=== PATIENT | female | born 2005 | race Caucasian/White ===

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

== ENCOUNTER → 2025-07-09 | Outpatient (CLI) | payer OTHER, SELFPAY ==
[2025-07-09 18:34] LABS: AST(SGOT) 18 U/L (<=31); Alanine Aminotransfer ALT/SGPT 11 U/L (<=34); Albumin, Serum 4.4 g/dL (3.5-5.0); Alkaline Phosphatase 71 U/L (35-104); Anion Gap 10 (5-15); BUN 12 mg/dL (4-19); BUN/Creat Ratio 15.4 RATIO (10-20); Calcium,Total 9.5 mg/dL (7.6-11.0); Carbon Dioxide 26.6 mmol/L (21.0-32.0); Chloride 106 mmol/L (98-108); Globulin 2.5 g/dL (2.2-4.2); Glucose 70 mg/dL (70-99); Potassium 4.1 mmol/L (3.3-5.1)
--- OUTSIDE RECORDS SUMMARY | 2025-07-09 19:00 | XMS RPT_ITS | CCD ---
Author Organization [facility] Care Team Providers Care Fitter Machinist Name Role Phone Jim Nguyen MD Primary Care Provider ELIZABETH MISTRY Referring Unavailable ELIZABETH MISTRY Attending Unavailable JIM NGUYEN Primary Care Unavailab le Unavailable Primary Care Provider UnavailVLADISLAV Gloria Attending Unavailable Allergies Allergy Classification Reported Allergen(s) Allergy Type Date of Onset Reaction(s) Facility (8 sources) Seasonal allergy; Translations: [SEASONAL ALLERGIES] Allergy to substance 5 Cough, Itching [facility] (7 sources) Adhesive Tape; Translations: [ADHESIVE TAPE (ROSINS)] Allergy to substance 9 Hives, Other: See Comments [facility] (7 sources) Bacitracin; Translations: [BACITRACIN] Drug Allergy 9 Hives, Unknown [facility] (7 sources) Neomycin; Translations: [NEOMYCIN] Drug Allergy 9 Hives, Unknown [facility] (7 sources) Polymyxin B; Translations: [POLYMYXIN B] Drug Allergy 9 Hives, Unknown [facility] (2 sources) Bacitracin / Polymyxin B Drug Allergy 5 [facility] (2 sources) Cat Dander Propensity to adverse reactions 5 [facility] (2 sources) Wound Dressing Adhesive Propensity to adverse reactions [facility] Current Medications Medication Drug Class(es) Dates Sig (Normalized) Sig (Original) levonorgestrel 0.823143 mg/hr intrauterine system (5 sources) Progestin, Progestin-containi ng Intrauterine Device Start: 08-16-2022 End: 08-15-2027 levonorgestrel (KYLEENA) 17.5 mcg/24 hrs (5 yrs) 19.5 mg IUD 1 Each by INTRAUTERINE route as directed. 1 Each 08/16/2022 08/15/2027 Active Comment on above: 1 Each by INTRAUTERI NE route as directed. Completed/Discontinued Medications Medication Drug Class(es) Dates Sig (Normalized) Sig (Original) acetaminophen 500 mg oral tablet (2 sources) Start: 02-19-20 End: 02-19-20 1,000 mg, Oral, Once, On Mon02/18/25 at 0130, For 1 dose, Maximum dose of acetaminophen is 4000 mg from all sources in 24 hours. cephalexin 500 mg oral capsule (3 sources) Cephalosporin Antibacterial Start: 06-27-20 End: 08-09-20 take 1 capsule by mouth three times daily cephALEXin (KEFLEX) 500 mg capsule Indications: Ingrowing toenail with infection Take 1 capsule by mouth three times daily. 21 capsule 0 06/27/2022 08/09/2022 Discontinued Comment on above: Take 1 capsule by mo ut three times daily. loratadine 5 mg chewable tablet (3 sources) Start: 12-04-19 End: 08-09-20 take 1 tablet by mouth once daily loratadine 5 mg chewable tablet Take 5 mg by mouth once daily. 0 12/04/2014 08/09/2022 Discontinued Comment on above: Take 5 mg by mouth o nce daily. 1 ml medroxyPROGESTERone acetate 150 mg/ml injection (3 sources) Progestin Start: 05-16-20 End: 08-16-20 medroxyPROGESTERone (DEPO-PROVERA) 150 mg/mL injection Inject 1 mL intramuscularly every 12 weeks. 0 05/16/2022 08/16/2022 Discontinued Comment on above: Inject 1 mL intramus cularly every 12 weeks. miSOPROStol 0.2 mg oral tablet (2 sources) Prostaglandin E1 Analog Start: 08-09-20 End: 08-16-20 miSOPROStol (CYTOTEC) 200 mcg tablet Use 2 tablets vaginally as directed. The night before the procedure and the morning of the procedure. 4 tablet 0 08/09/2022 08/16/2022 Discontinued Comment on above: Use 2 tablets vagina lly as directed. The night before the procedure and the morning of the procedure. 2 ml ondansetron 2 mg/ml injection (2 sources) Serotonin-3 Receptor Antagonist Start: 02-19-20 End: 02-19-20 4 mg, IntraVENous, Once, On Mon02/18/25 at 0235, For 1 dose potassium chloride 20 meq powder for oral solution (2 sources) Start: 02-19-20 End: 02-19-20 take 1 [oz_av] by mouth once 40 mEq, Oral, Once, On Mon02/18/25 at 0230, For 1 dose, Dissolve each packet in 4 ounces of water = 5 mEq per 1 oz fluid., Indications: Hypokalemia 50 ml sodium chloride 9 mg/ml injection (2 sources) Start: 02-19-20 End: 02-19-20 1,000 mL, IntraVENous, at 1,000 mL/hr, Administer over 1 Hours, Once, On Mon02/18/25 at 0130, For 1 dose Problems Active Problems Problem Classification Problem Date Documented Date Episodic/Chronic Anxiety disorders (3 sources) Acute stress disorder; Translations: [Acute stress reaction] Onset: 09-13-2023 09-13-2023 Chronic Contraceptive and procreative management (7 sources) Patient encounter status; Translations: [Encounter for insertion of intrauterine contraceptive device] Onset: 09-26-2024 Episodic Headache; including migraine (2 sources) Acute headache; Translations: [Acute nonintractable headache, unspecified headache type] 02-18-2025 Episodic Headache; including migraine (2 sources) Headache; including migraine; Translations: [Headache, unspecified] Onset: 02-18-2025 Other skin disorders (1 source) Infection of toenail; Translations: [Ingrowing nail] Episodic Other skin disorders (1 source) Ingrowing toenail; Translations: [Ingrowing nail] Episodic Syncope (4 sources) Syncope; Translations: [Syncope and collapse] Onset: 02-18-2025 02-18-2025 Episodic Past or Other Problems Problem Classification Problem Date Documented Da te Episodic/Chronic Administrative/social admission (3 sources) Partner relationship problem; Translations: [Problems in relationship with spouse or partner] Onset: 09-13-2023 09-13-2023 Episodic Mood disorders (5 sources) Disturbance in mood; Translations: [Emotional lability] Onset: 09-13-2023 09-13-2023 Episodic Results Test Name Value Interpretation Reference Range Facility BASIC METABOLIC PANELon 05-0 Anion gap [Moles/Vol] 10 mmol/L Normal 3-13 [facility] Comment on above: Performed By: #### L [id number], LAB15, LAB20 #### Top Lifter: MICHELET SOLIS ([id number]) [facility] ([facility]) [address] [place] [address] Calcium [Mass/Vol] 9.0 mg/dL Normal 8.4-10.2 [facility] Comment on above: Performed By: #### L [id number], LAB15, LAB20 #### Top Lifter: MICHELET SOLIS ([id number]) [facility] ([facility]) [address] [place] [address] Chloride [Moles/Vol] 104 mmol/L Normal 98-107 [facility] Comment on above: Performed By: #### L [id number], LAB15, LAB20 #### Top Lifter: MICHELET SOLIS ([id number]) [facility] ([facility]) [address] [place] [address] CO2 [Moles/Vol] 26 mmol/L Normal 22-29 [facility] Comment on above: Performed By: #### L [id number], LAB15, LAB20 #### Top Lifter: MICHELET SOLIS ([id number]) [facility]) [address] [place] [address] Creatinine [Mass/Vol] 0.85 mg/dL Normal 0.57-1.11 [facility] Comment on above: Performed By: #### L [id number], LAB15, LAB20 #### Top Lifter: MICHELET SOLIS ([id number]) [facility]) [address] [place] [address] GLOMERULAR FILTRATION RATE ML/MIN/1.73 SQ M.PREDICTED >90.0 Normal >60.0 [facility] Comment on above: Result Comment: Calc ulation based on the Chronic Kidney Disease Epidemiology Collaboration (CKD-EPI) equation refit without adjustment for race Performed By: #### L [id number], LAB15, LAB20 #### Top Lifter: MICHELET SOLIS ([id number]) [facility] ([facility]) [address] [place] [address] Glucose [Mass/Vol] 104 mg/dL High 74-100 [facility] Comment on above: Performed By: #### L [id number], LAB15, LAB20 #### Top Lifter: MICHELET SOLIS ([id number]) [facility] ([facility]) [address] [place] [address] Potassium [Moles/Vol] 3.1 mmol/L Low 3.5-5.1 [facility] Comment on above: Result Comment: [facility] potassium values may be up to 0.5 mmol/L lower than serum values. Performed By: #### L [id number], LAB15, LAB20 #### Top Lifter: MICHELET SOLIS ([id number]) [facility] ([facility]) [address] [place] [address] Sodium [Moles/Vol] 140 mmol/L Normal 136-145 [facility] Comment on above: Performed By: #### Cheryl [id number], LAB15, LAB20 #### Top Lifter: MICHELET SOLIS ([id number]) [facility] ([facility]) [address] [place] [address] Urea nitrogen [Mass/Vol] 12 mg/dL Normal 8-21 [facility] Comment on above: Performed By: #### L [id number], LAB15, LAB20 #### Top Lifter: MICHELET SOLIS ([id number]) [facility] ([facility]) [address] [place] [address] Basic metabolic 1998 panelon 02-18-2025 Anion gap [Moles/Vol] 10 mmol/L 3 - 13 mmol/L [facility] Calcium [Mass/Vol] 9 mg/dL 8.4 - 10. 2 mg/dL [facility] Chloride [Moles/Vol] 104 mmol/L 98 - 10 7 mmol/L [facility] CO2 [Moles/Vol] 26 mmol/L 22 - 29 mmol/L [facility] Creatinine [Mass/Vol] 0.85 mg/dL 0.57 - 1.11 mg/dL [facility] GFR/1.73 sq M.predicted (S/P/Bld) [Vol rate/Area] - PINF [facility] Comment on above: Calculation based on the Chronic Kidney Disease Epidemiology Collaboration (CKD-EPI) equation refit without adjustment for race Glucose [Mass/Vol] 104 mg/dL High 74 - 100 mg/dL [facility] Interpretation and review of laboratory results Abnormal [facility] Potassium [Moles/Vol] 3.1 mmol/L Low 3.5 - 5.1 mmol/L [facility] Comment on above: Plasma potassium rosalee ues may be up to 0.5 mmol/L lower than serum values. Sodium [Moles/Vol] 140 mmol/L 136 - 145 mmol/L [facility] Urea nitrogen [Mass/Vol] 12 mg/dL 8 - 21 mg/dL [facility] CBC W Auto Differential pane l (Bld)on 02-18-2025 Basophils (Bld) [#/Vol] 0 10*3/uL 0.0 - 0.2 10*3/uL [facility] Basophils/100 WBC (Bld) 0.6 % 0.0 - 2.0 % [facility] Eosinophils (Bld) [#/Vol] 0.1 10*3/uL 0.0 - 0.5 10*3/uL [facility] Eosinophils/100 WBC (Bld) 1.6 % 0.0 - 6.0 % [facility] Erythrocyte distribution width (RBC) [Ratio] 11.9 % 11.5 - 15.0 % [facility] Hematocrit (Bld) [Volume fraction] 42.3 % 35.0 - 47.0 % [facility] Hemoglobin (Bld) [Mass/Vol] 13.8 g/dL 11.7 - 16.0 g/dL [facility] Immature granulocytes (Bld) [#/Vol] 0 10*3/uL NINF - 0.1 10*3/uL [facility] Immature granulocytes/100 WBC (Bld) 0.3 % 0.0 - 2.0 % [facility] Interpretation and review of laboratory results Normal [facility] Lymphocytes (Bld) [#/Vol] 1.8 10*3/uL 1.0 - 4.3 10*3/uL [facility] Lymphocytes/100 WBC (Bld) 26.4 % 15.0 - 45.0 % [facility] MCH (RBC) [Entitic mass] 30 pg 26.0 - 34.0 pg [facility] MCHC (RBC) [Mass/Vol] 32.6 % 30.5 - 36.0 % [facility] MCV (RBC) [Entitic vol] 92 fL 77.0 - 99.0 fL [facility] Monocytes (Bld) [#/Vol] 0.7 10*3/uL 0.0 - 0.9 10*3/uL [facility] Monocytes/100 WBC (Bld) 10.2 % 5.0 - 13.0 % [facility] Neutrophils (Bld) [#/Vol] 4.1 10*3/uL 1.8 - 7.5 10*3/uL [facility] Neutrophils/100 WBC (Bld) 60.9 % 38.0 - 82.0 % [facility] Nucleated RBC/100 WBC (Bld) [Ratio] 0 % [facility] Platelet mean volume (Bld) [Entitic vol] 9.5 fL 9.0 - 12.7 fL [facility] Platelets (Bld) [#/Vol] 228 10*3/uL 140 - 440 10*3/uL [facility] RBC (Bld) [#/Vol] 4.6 10*6/uL 3.80 - 5.2 0 10*6/uL [facility] WBC (Bld) [#/Vol] 6.8 10*3/uL 3.6 - 10.7 10*3/uL [facility] CBC WITH AUTO DIFFERENTIALon 02-18-2025 Basophils (Bld) [#/Vol] 0.0 10*3/uL Normal 0.0-0.2 [facility] Comment on above: Performed By: #### L [id number] #### Top Lifter: MICHELET SOLIS ([id number]) [facility] ([address] Basophils/100 WBC (Bld) 0.6 % Normal 0.0-2.0 [facility] Comment on above: Performed By: #### L [id number] #### Top Lifter: MICHELET SOLIS ([id number]) [facility]) [address] [place] [address] Eosinophils (Bld) [#/Vol] 0.1 10*3/uL Normal 0.0-0.5 [facility] Comment on above: Performed By: #### L [id number] #### Top Lifter: MICHELET SOLIS ([id number]) [facility]) [address] [place] [address] Eosinophils/100 WBC (Bld) 1.6 % Normal 0.0-6.0 [facility] Comment on above: Performed By: #### L [id number] #### Top Lifter: MICHELET SOLIS ([id number]) [facility]) [address] [place] [address] Erythrocyte distribution width (RBC) [Ratio] 11.9 % Normal 11.5-15.0 [facility] Comment on above: Performed By: #### L [id number] #### Top Lifter: MICHELET SOLIS ([id number]) [facility]) [address] [place] [address] Hematocrit (Bld) [Volume fraction] 42.3 % Normal 35.0-47.0 [facility] Comment on above: Performed By: #### L [id number] #### Top Lifter: MICHELET SOLIS ([id number]) [address] Hemoglobin (Bld) [Mass/Vol] 13.8 g/dL Normal 11.7-16.0 [facility] Comment on above: Performed By: #### L [id number] #### Top Lifter: MICHELET SOLIS ([id number]) [facility]) [address] [place] [address] IMMATURE GRANS % 0.3 % Normal 0.0-2.0 [facility] Comment on above: Performed By: #### L [id number] #### Top Lifter: MICHELET SOLIS ([id number]) [facility]) [address] [place] [address] IMMATURE GRANS ABSOLUTE 0.0 10*3/uL Normal <0.1 [facility] Comment on above: Performed By: #### L [id number] #### Top Lifter: MICHELET SOLIS ([id number]) [facility]) [address] [place] [address] Lymphocytes (Bld) [#/Vol] 1.8 10*3/uL Normal 1.0-4.3 [facility] Comment on above: Performed By: #### L [id number] #### Top Lifter: MICHELET SOLIS ([id number]) [facility]) [address] [place] [address] Lymphocytes/100 WBC (Bld) 26.4 % Normal 15.0-45.0 [facility] Comment on above: Performed By: #### L [id number] #### Top Lifter: MICHELET SOLIS ([id number]) [facility]) [address] [place] [address] MCH (RBC) [Entitic mass] 30.0 pg Normal 26.0-34.0 [facility] Comment on above: Performed By: #### L [id number] #### Top Lifter: MICHELET SOLIS ([id number]) [facility]) [address] [place] [address] MCHC 32.6 % Normal 30.5-36.0 [facility] Comment on above: Performed By: #### L [id number] #### Top Lifter: MICHELET SOLIS ([id number]) [facility]) [address] [place] [address] MCV (RBC) [Entitic vol] 92.0 fL Normal 77.0-99.0 [facility] Comment on above: Performed By: #### L [id number] #### Top Lifter: MICHELET SOLIS ([id number]) [facility]) [address] [place] [address] Monocytes (Bld) [#/Vol] 0.7 10*3/uL Normal 0.0-0.9 [facility] Comment on above: Performed By: #### L [id number] #### Top Lifter: MICHELET SOLIS ([id number]) [facility] ([facility]) [address] [place] [address] Monocytes/100 WBC (Bld) 10.2 % Normal 5.0-13.0 [facility] Comment on above: Performed By: #### L [id number] #### Top Lifter: MICHELET SOLIS ([id number]) [facility] ([facility]) [address] [place] [address] NEUTROPHILS ABSOLUTE 4.1 10*3/uL Normal 1.8-7.5 [facility] Comment on above: Performed By: #### L [id number] #### Top Lifter: MICHELET SOLIS ([id number]) [facility] ([facility]) [address] [place] [address] Neutrophils/100 WBC (Bld) 60.9 % Normal 38.0-82.0 [facility] Comment on above: Performed By: #### L [id number] #### Top Lifter: MICHELET SOLIS ([id number]) [facility] ([facility]) [address] [place] [address] NRBC 0.0 /100 WBCs Normal 0.0-2.0 [facility] Comment on above: Performed By: #### L [id number] #### Top Lifter: MICHELET SOLIS ([id number]) [facility] ([facility]) [address] [place] [address] Platelet mean volume (Bld) [Entitic vol] 9.5 fL Normal 9.0-12.7 [facility] Comment on above: Performed By: #### L [id number] #### Top Lifter: MICHELET SOLIS ([id number]) [facility] ([facility]) [address] [place] [address] [place] Platelets (Bld) [#/Vol] 228 10*3/uL Normal 140-440 [facility] Comment on above: Performed By: #### L [id number] #### Top Lifter: MICHELET SOLIS ([id number]) [facility] ([facility]) [address] [place] [address] RBC (Bld) [#/Vol] 4.60 10*6/uL Normal 3.80-5.20 [facility] Comment on above: Performed By: #### L [id number] #### Top Lifter: MICHELET SOLIS ([id number]) [facility] ([facility]) [address] [place] [address] WBC (Bld) [#/Vol] 6.8 10*3/uL Normal 3.6-10.7 [facility] Comment on above: Performed By: #### L [id number] #### Top Lifter: MICHELET SOLIS ([id number]) [facility] ([facility]) [address] [place] [address] ECG 12-LEADon 02-18-2025 ECG 12-LEAD IMPRESSION: Sinus arrhythmia Normal [place] No ST or T wave changes No previous available for comparison Electronically Signed On 02-18-2025 06:42:49 EDT by Fan Machado [facility] ED Nursing Noteon 02-18-2025 ED Nursing Note 100cc of vomit. Nausea and vomiting. This is also the first instance of diarrhea, liquid stool. Normal [facility] ED Provider Noteon ED Provider Note Emergency Department Encounter [facility] EMERGENCY DEPT Patient: Harper Epperson : 2005 Date of Evaluation: 02/18/2025 ED Supervising Physician: Vladislav Berger MD I personally evaluated Harper Epperson and made/approved the management plan and take responsibility for the patient management. This will serve as my Supervisory note and shared attestation. I did perform a substantive portion of the visit including all aspects of the Medical Decision Making. I wore appropriate PPE for the entirety of this encounter. In brief, Harper Epperson is a 19 y.o. that presents to the emergency department for evaluation after a syncopal episode. Patient states that she used a vape pen to smoke some marijuana. Approximately 30 minutes later she became lightheaded and briefly passed out. She fell and did hit her head on the floor. Friend is here with her and states that she did not fall hard nor hit her head very hard. Patient is complaining some pain on the right side of the forehead but denies any other complaints. Patient reports 1 previous syncopal episode approximately 1 year ago for which she did not go to the hospital. She states at that time it was a very hot day. She also reports smoking marijuana and then passed out later while making waffles. Denies any history of known heart disease. Unaware of any family history of any heart problems. Focused exam: Awake, alert, no apparent distress. Sitting comfortably in the bed. Normocephalic, atraumatic. Normal heart rate and heart sounds. Normal respiratory rate and effort. Normal lung sounds. Nontender to palpation along the chest wall, abdomen, pelvis. Upper and lower extremities unremarkable with normal range of motion at all joints and no tenderness to palpation. Brief ED course/MDM: Patient presents after syncopal episode described in HPI. EKG was obtained shortly after arrival per my interpretation shows sinus arrhythmia with no ST elevation, depression, ectopy, or abnormal intervals. No evidence of A-V dissociation, Brugada, QT prolongation, WPW, ARVD, obstructive cardiomyopathy, or RV strain. Workup in the ED with CBC, BMP, screen, and troponin with concern for possibility of electrolyte abnormality induced arrhythmia, anemia, or other possible etiology of her syncopal episode. Workup shows no significant derangements other than hypokalemia at 3.1. Patient was provided initial oral repletion here in the ED. Patient did have mild headache. She did hit her head when she fell. No focal or lateralizing deficits to indicate the need for CT scan. No evidence of injury on physical exam. She wasprovided Tylenol in the ED with improvement in headache. At this point I feel she is safer discharge with outpatient follow-up with her primary care. I recommend she call first thing in the morning to schedule appropriate follow-up. Return precautions were discussed and questions answered at the bedside prior to discharge. Family was concerned that she did appear jaundice recently. Does not appear jaundiced here today. We did add on a hepatic panel which does show a mild hyperbilirubinemia. Patient was instructed to also discuss this with her primary care for further evaluation. Diagnostics interpreted by me: EKG; see my interpretation elsewhere in the chart I personally discussed the patient's management with other clinicians: none All diagnostic, treatment, and disposition decisions were made by myself in conjunction with the Resident. I also supervised ventura portions of any procedures performed by the Resident. For all further details of the patient's emergency department visit, please see their documentation. (Comment: Please note this report has been produced using speech recognition software and may contain errors related to that system including errors in grammar, punctuation, and spelling, as well as words and phrases that may be inappropriate. If there are any questions or concerns please feel free to contact the dictating provider for clarification.) Vladislav Berger MD Acute Care [facility] Vladislav Berger MD 02/18/25 0255 [facility] ED Provider Note EMERGENCY DEPARTMENT ENCOUNTER Pt Name: Harper Epperson Birthdate 2005 Date of evaluation: 02/18/2025 ED Provider: Dmitriy Cao MD CHIEF COMPLAINT Chief Complaint Patient presents with Headache Headache since incident. Syncope Passed out tonight after feeling nausea and dizzy with only one instance of this before in the past. Currently nauseous and headache currently. When she passed out she hit her head without evidence of trauma and no complaints of tenderness. HISTORY OF PRESENT ILLNESS (Location/Symptom, Timing/Onset, Context/Setting, Quality, Duration, Modifying Factors, Severity) Note limiting factors. I wore appropriate PPE for the entirety of this encounter. HPI Harper Epperson is a 19 y.o. who presents to the emergency department with a chief complaint of syncope. Patient states that tonight she was smoking marijuana. Afterwards she was standing up when she felt lightheaded before she passed out. Her friend at bedside states she did strike her head on the wall when she fell. There was no tonic-clonic activity. The patient denies any preceding chest pain, palpitations, shortness of breath but is remember feeling lightheaded. Patient states this has happened 1 time before in the setting of marijuana use. Since falling patient is reporting a frontal headache. Nursing Notes were reviewed. Limitations to history: None Outside historians: None REVIEW OF SYSTEMS Review of Systems Pertinent positives and negatives as per HPI. PAST MEDICAL HISTORY No past medical history on file. SURGICAL HISTORY No past surgical history on file. CURRENT MEDICATIONS There are no discharge medications for this patient. ALLERGIES Cat dander, Neosporin [bacitracin-polymyx in b], and Wound dressing adhesive FAMILY HISTORY No family history on file. SOCIAL HISTORY Social History Socioeconomic History Marital status: Single SCREENINGS NIH Stroke Scale 1A. Level of Consciousness: Alert, Keenly Responsive 1B. Ask Month and Age: Both Questions Right 1C. Blink Eyes & Squeeze Hands: Performs Both Tasks 2. Best Gaze: Normal 3. Visual: No Visual Loss 4. Facial Palsy: Normal Symmetrical Movements 5A. Motor - Left Arm: No Drift 5B. Motor - Right Arm: No Drift 6A. Motor - Left Leg: No Drift 6B. Motor - Right Leg: No Drift 7. Limb Ataxia: Absent 8. Sensory Loss: Normal 9. Best Language: No Aphasia 10. Dysarthria: Normal 11. Extinction and Inattention: No Abnormality NIH Stroke Scale: 0 PHYSICAL EXAM ED Triage Vitals Temp Heart Rate Resp BP 02/18/25 0131 02/18/25 0124 02/18/25 0124 02/18/25 0124 36.3 ?C (97.4 ?F) 80 16 101/63 SpO2 Temp src Heart Rate Source Patient Position 02/18/25 0124 -- 02/18/25 0319 02/18/25 0124 99 % Monitor Sitting BP Location FiO2 (%) 02/18/25 0124 -- Left arm Physical Exam Vitals and nursing note reviewed. Constitutional: General: She is not in acute distress. Appearance: She is well-developed. HENT: Head: Normocephalic and atraumatic. Eyes: General: No visual field deficit. Extraocular Movements: Extraocular movements intact. Conjunctiva/sclera: Conjunctivae normal. Pupils: Pupils are equal, round, and reactive to light. Cardiovascular: Rate and Rhythm: Normal rate and regular rhythm. Heart sounds: No murmur heard. Pulmonary: Effort: Pulmonary effort is normal. No respiratory distress. Breath sounds: Normal breath sounds. Abdominal: Palpations: Abdomen is soft. Tenderness: There is no abdominal tenderness. Musculoskeletal: General: No swelling. Cervical back: Neck supple. No rigidity. Skin: General: Skin is warm and dry. Neurological: Mental Status: She is alert. GCS: GCS eye subscore is 4. GCS verbal subscore is 5. GCS motor subscore is 6. Cranial Nerves: No cranial nerve deficit, dysarthria or facial asymmetry. Sensory: No sensory deficit. Motor: No weakness. Coordination: Coordination normal. Gait: Gait normal. Psychiatric: Mood and Affect: Mood normal. DIAGNOSTIC RESULTS RADIOLOGY (Per Emergency Physician): Interpretation per the Radiologist below, if available at the time of this note: No orders to display LABS: Labs Reviewed BASIC METABOLIC PANEL - Abnormal Result Value SODIUM 140 POTASSIUM 3.1 (*) CHLORIDE 104 CARBON DIOXIDE 26 UREA NITROGEN 12 CREATININE 0.85 GLUCOSE 104 (*) CALCIUM 9.0 ANION GAP 10 eGFR >90.0 HEPATIC FUNCTION PANEL - Abnormal BILIRUBIN, TOTAL 1.6 (*) BILIRUBIN, DIRECT 0.5 (*) ALKALINE PHOSPHATASE 63 AST (SGOT) 43 (*) ALT 19 ALBUMIN 4.3 TOTAL PROTEIN 6.8 CBC WITH AUTO DIFFERENTIAL - Normal Auto WBC 6.8 RBC 4.60 Hemoglobin 13.8 Hematocrit 42.3 MCV 92.0 MCH 30.0 MCHC 32.6 RDW 11.9 Platelets 228 MPV 9.5 nRBC 0.0 Neutrophils Relative 60.9 Lymphocytes Relative 26.4 Monocytes Relative 10.2 Eosinophils Relative 1.6 Basophils Relative 0.6 Immature Grans % 0.3 Neutrophils A (more content not included)... Normal [facility] HEPATIC FUNCTION PANELon Albumin [Mass/Vol] 4.3 g/dL Normal 3.5-5.0 [facility] Comment on above: Performed By: #### Cheryl [id number], LAB15, LAB20 #### Top Lifter: MICHELET SOLIS ([id number]) [facility]) [address] [place] [address] ALP [Catalytic activity/Vol] 63 U/L Normal 40-150 [facility] Comment on above: Performed By: #### Cheryl [id number], LAB15, LAB20 #### Top Lifter: MICHELET SOLIS ([id number]) [facility]) [address] [place] [address] ALT [Catalytic activity/Vol] 19 U/L Normal <30 [facility] Comment on above: Performed By: #### Cheryl [id number], LAB15, LAB20 #### Top Lifter: MICHELET SOLIS ([id number]) [facility]) [address] [place] [address] AST [Catalytic activity/Vol] 43 U/L High <34 [facility] Comment on above: Performed By: #### L [id number], LAB15, LAB20 #### Top Lifter: MICHELET SOLIS ([id number]) [facility]) [address] [place] [address] Bilirubin [Mass/Vol] 1.6 mg/dL High <1.2 [facility] Comment on above: Performed By: #### L [id number], LAB15, LAB20 #### Top Lifter: MICHELET SOLIS ([id number]) [facility]) [address] [place] [address] Bilirubin.indirect [Mass/Vol] 0.5 mg/dL High <0.5 [facility] Comment on above: Performed By: #### L [id number], LAB15, LAB20 #### Top Lifter: MICHELET SOLIS ([id number]) [facility] ([facility]) [address] [place] [address] Protein [Mass/Vol] 6.8 g/dL Normal 6.4-8.3 [facility] Comment on above: Result Comment: Seru m protein values are higher than plasma values. Samples from recumbent persons are lower by up to 0.5 g/dL as compared to ambulatory persons. After 60 years values are lower by up to 0.2 g/dL. Performed By: #### L [id number], LAB15, LAB20 #### Top Lifter: MICHELET SOLIS ([id number]) [facility]) [address] [place] [address] HIGH SENSITIVITY TROPONIN, S ERIAL BASELINEon 02-18-2025 TROPONIN HS SERIAL BASELINE <3 Normal <=14 [facility] Comment on above: Result Comment: In i ndividuals presenting with symptoms > 2h, a baseline troponin <= 5 ng/L suggests acute cardiac injury is unlikely and further serial testing is generally not indicated. Performed By: #### L [id number], LAB15, LAB20 #### Top Lifter: MICHELET SOLIS ([id number]) [facility]) [address] [place] [address] Hepatic function 2000 panelo n 02-18-2025 Albumin [Mass/Vol] 4.3 g/dL 3.5 - 5.0 g/dL [facility] ALP [Catalytic activity/Vol] 63 U/L 40 - 150 U/L [facility] [employer] ALT [Catalytic activity/Vol] 19 U/L NINF - 30 U/L [facility] AST [Catalytic activity/Vol] 43 U/L High NINF - 34 U/L [facility] Bilirubin [Mass/Vol] 1.6 mg/dL High NINF - 1.2 mg/dL [facility] [facility] Bilirubin.conjugated [Mass/Vol] 0.5 mg/dL High NINF - 0.5 mg/dL [employer] [facility] [facility] Interpretation and review of laboratory results Abnormal [facility] Protein [Mass/Vol] 6.8 g/dL 6.4 - 8.3 g/dL [facility] Comment on above: Serum protein values are higher than plasma values. Samples from recumbent persons are lower by up to 0.5 g/dL as compared to ambulatory persons. After 60 years values are lower by up to 0.2 g/dL. [employer] No Panel InformationOrdered By: Fan Machado on 02-18-2025 P [place] 88 degrees [employer] Work Phone: MO Interval 150 ms [employer] Work Phone: QRS [place] 82 degrees [employer] Work Phone: QRSD Interval 80 ms [employer] Work Phone: QT Interval 398 ms [employer] Work Phone: QTC Interval 441 ms [employer] Work Phone: T Wave [place] 64 degrees [employer] Work Phone: [employer] Work Phone: No Panel Informationon 02-18 Sinus arrhythmia Normal [place] No ST or T wave changes No previous available for comparison Electronically Signed On 02-18-2025 06:42:49 EDT by Fan Machado CV aFn Khanna MD - 02/18/2025 IMPRESSION: Sinus arrhythmia Normal [place] No ST or T wave changes No previous available for comparison Electronically Signed On 02-18-2025 06:42:49 EDT by Fan Machado [facility] Interpretation and review of laboratory results Normal [facility] [employer] Troponin HS Serial Baseline ng/L NINF - 14 ng/L [facility] Comment on above: In individuals prese nting with symptoms > 2h, a baseline troponin <= 5 ng/L suggests acute cardiac injury is unlikely and further serial testing is generally not indicated. [employer] Vital signsOrdered By: Fan Machado on 02-18-2025 Heart rate 73 /min bpm [facility] [employer] Work Phone: CNOVon 09-26-2024 CN Office Visit (OBGYWM) ---- HARPER EPPERSON ([id number]) 5 F Date Time Provider Department 09/26/24 4:00 PM ELIZABETH MISTRY OBGYWM During your visit today, we recorded the following information about you: Blood pressure Weight 90/64 44.9 kg Elizabeth Mistry APRN.CN 09/26/2024 4:48 PM Signed Harper Epperson is a 19 year old female who presents for problem visit of continued mood changes. HPI: Seen in office last year for similar complaints and was contemplating removing IUD. She stated she has made several life changes such as going away to college and breaking up with previous boyfriend. She feels better but continues to have episodes of crying. Reports feeling extremely emotional whenever she is left alone. Just sits there and continuously cries for no reason. Unsure if fear or anxiety. Patient's mother again concerned over continued mood changes, crying spells and requests patient's hormones be tested. Patient is currently sexually active and voicing a need for control other than condoms. She is thinking about removing IUD to see if there is any effect on mood. She is torn over removal because she likes the IUD for contraception and no periods. OB History T0 L0 SAB0 IAB0 Ectopic0 Multiple0 Live Births0 [employer] History LMP: LMP Unknown, IUD Age at Menarche: 12 Age at First : Age at Menopause: [employer] History Comments: Sexual Activity: Yes; No partner data on record; male partner Contraception: No contraception data on record No past medical history on file. No past surgical history on file. No family history on file. Social History Tobacco Use Smoking status: Never Passive exposure: Never Smokeless tobacco: Never Vaping Use Vaping status: Never Used Substance Use Topics Alcohol use: No Drug use: No Current Outpatient Medications Medication Sig levonorgestrel (KYLEENA) 17.5 mcg/24 hrs (5 yrs) 19.5 mg IUD 1 Each by INTRAUTERINE route as directed. No current facility-administer ed medications for this visit. Allergies As of Date: 09/26/2024 Allergen Noted Reaction ADHESIVE TAPE (ROSINS) 10/14/2019 Hives and Other: See Comments BACITRACIN 10/14/2019 Hives and Unknown NEOMYCIN 10/14/2019 Hives and Unknown POLYMYXIN B 10/14/2019 Hives and Unknown SEASONAL ALLERGIES 12/04/2014 Cough and Itching Fully Assessed 09/13/2023 REVIEW OF SYSTEMS Abdomen: No bloating, early satiety, indigestion, or increased flatulence. No abdominal pain, nausea, vomiting, diarrhea, or constipation. Bladder: No dysuria, gross hematuria, urinary frequency, urinary urgency, or incontinence. Breast: No breast lumps, nipple d/c, overlying skin changes, redness or skin retraction. Expanded ROS: N/A Allergies and current medication updated:Yes SENSITIVE EXAM: Sensitive exam not performed. EXAM: BP 90/64 Wt 99 lb (44.9kg) GENERAL: emotional, female in mild distress HEENT: Normocephalic and atraumatic NECK: Supple and full range of motion DERMATOLOGY: Normal and without lesions BREAST: deferred CHEST: Normal inspiratory effort ABDOMEN: Deferred PELVIC: deferred BIMANUAL: deferred NEURO: alert and oriented x3,exam grossly non-focal EXTREMITIES: normal ASSESSMENT AND PLAN: Assessment AND Plan Mood changes General counseling and advice for contraceptive management Encounter for IUD removal Orders: REMOVE INTRAUTERINE DEVICE - Discussed hormonal and mood changes can occur with hormone based contraception - Establishing care with a counselor tomorrow - May remove IUD after consideration - Reviewed other options of contraception such as NuvaRing, Phexxi, Condoms - Order placed for IUD removal - Patient will call and schedule if desires - Support provided CASI Wets Courtney, APRN.CNM 09/26/2024 4:48 PM Written Referring Provider: ELIZABETH MISTRY [[id number]] Allergies As of Date: 09/26/2024 Noted Allergy Reaction ADHESIVE TAPE (ROSINS) 10/14/2019 4 - Hives 14 - Other: See Comments BACITRACIN 10/14/2019 4 - Hives 16 - Unknown NEOMYCIN 10/14/2019 4 - Hives 16 - Unknown POLYMYXIN B 10/14/2019 4 - Hives 16 - Unknown SEASONAL ALLERGIES 12/04/2014 3 - Cough 9 - Itching Date Reviewed: 09/26/2024 Reviewed by: Fox Keller MA - Fully Assessed Reason for Visit: Discussion [813] Primary Visit Diagnosis:Encounter for IUD removal [Z30.432] Other Visit Diagnoses:Mood changes [R45.86] General counseling and advice for contraceptive management [Z30.09] Order(s):REMOVE INTRAUTERINE DEVICE [[id number]] Order #: [id number] Prescriptions as of 09/26/2024 - levonorgestrel (KYLEENA) 17.5 mcg/24 hrs (5 yrs) 19.5 mg IUD 1 Each by INTRAUTERINE route as directed. Problem List As Of Date 09/26/2024 Noted Resolved Reaction, situational, acute, to stress [F43.0] 09/13/2023 Mood changes [R45.86] 09/13/2023 (more content not included)... Normal [facility] HCG QUAL UR B/Oon 08-16-2022 status Negative neg - pos [facility] Quality Check Yes [facility] COVID 19, LUCIAN WC(RT COLLECT )on 07-20-2021 SARS-CoV-2 (COVID-19) RNA LUCIAN+probe Ql (Unsp spec) Not detected Normal Not Detect [facility] Comment on above: Result Comment: Norm al Reference Range: Not Detected Method:(RT-PCR) real-time reverse transcriptase PCR [employer] Instrument *The Food and Drug Administration (FDA) has issued an Emergency Use Authorization (EAU) for the [employer] Integrity SARS-CoV-2 Assay for the rapid detection of the virus that causes COVID-19. This test has been validated, but the [facility] independent review of this validation is pending. *Negative results do not preclude infection and should not be used as the sole basis for treatment or patient management. Optimum specimen types and timing for peak viral levels during infections caused by SARS-CoV-2 have not been determined. Collection of multiple specimens from the same patient may be necessary to detect the virus. The possibility of a false negative result should be considered if the patient has clinical presentation or has had recent exposure. Performed By: #### L [id number] #### [facility] [address] [place], [place], [id number] Vital Signs Date Time Vital Sign Value Performing Clinician Juan Antonioi irasema 02-18-2025 03:19-0400 Diastolic blood pressure 64 mm[Hg] Vladislav Berger MD Work Phone: [facility] 02-18-2025 03:19-0400 Heart rate 79 /min Vladislav Berger MD Work Phone: [facility] 02-18-2025 03:19-0400 Respiratory rate 16 /min Vladislav Berger MD Work Phone: [facility] 02-18-2025 03:19-0400 SaO2% (BldA) [Mass fraction] 99 % Vladislav Berger MD Work Phone: [facility] 02-18-2025 03:19-0400 Systolic blood pressure 97 mm[Hg] Vladislav Berger MD Work Phone: [facility] 02-18-2025 01:31-0400 Body temperature 97.39 [degF] Vladislav Berger MD Work Phone: [facility] 02-18-2025 01:24-0400 Body height 160 cm Vladislav Berger MD Work Phone: [facility] 02-18-2025 01:24-0400 Body mass index (BMI) [Ratio] 17.54 kg/m2 Vladislav Berger MD Work Phone: [facility] 02-18-2025 01:24-0400 Body weight 44.91 kg Vladislav Berger MD Work Phone: [facility] 09-26-2024 16:15-0500 Body weight 44.91 kg Elizabeth Plotts GOLD MARKER.CNM Work Phone: [facility] 09-26-2024 16:15-0500 Diastolic blood pressure 64 mm[Hg] Elizabeth Plotts GOLD MARKER.CNM Work Phone: [facility] 09-26-2024 16:15-0500 Systolic blood pressure 90 mm[Hg] Elizabeth Plotts GOLD MARKER.CNM Work Phone: [facility] 09-13-2023 13:56-0500 Body weight 47.63 kg Elizabeth Plotts GOLD MARKER.CNM Work Phone: [facility] 09-13-2023 13:56-0500 Diastolic blood pressure 62 mm[Hg] Elizabeth Plotts GOLD MARKER.CNM Work Phone: [facility] 09-13-2023 13:56-0500 Systolic blood pressure 110 mm[Hg] Elizabeth Plotts GOLD MARKER.CNM Work Phone: [facility] 09-20-2022 15:45-0500 Body weight 49.71 kg Cahty Metamora GOLD MARKER.TECHNOLOGY EDUCATION INSTRUCTOR Work Phone: [facility] 09-20-2022 15:45-0500 Diastolic blood pressure 58 mm[Hg] Cathy Metamora GOLD MARKER.TECHNOLOGY EDUCATION INSTRUCTOR Work Phone: [facility] 09-20-2022 15:45-0500 Systolic blood pressure 90 mm[Hg] Cathy Metamora GOLD MARKER.TECHNOLOGY EDUCATION INSTRUCTOR Work Phone: [facility] 08-16-2022 11:57-0400 Diastolic blood pressure 60 mm[Hg] Cathy Metamora GOLD MARKER.TECHNOLOGY EDUCATION INSTRUCTOR Work Phone: [facility] 08-16-2022 11:57-0400 Heart rate 76 /min Cathy Metamora GOLD MARKER.TECHNOLOGY EDUCATION INSTRUCTOR Work Phone: [facility] 08-16-2022 11:57-0400 Respiratory rate 16 /min Cathy Metamora GOLD MARKER.TECHNOLOGY EDUCATION INSTRUCTOR Work Phone: [facility] 08-16-2022 11:57-0400 SaO2% (BldA) [Mass fraction] 99 % Cathy Metamora GOLD MARKER.TECHNOLOGY EDUCATION INSTRUCTOR Work Phone: [facility] 08-16-2022 11:57-0400 Systolic blood pressure 90 mm[Hg] Cathy Krishna GOLD MARKER.TECHNOLOGY EDUCATION INSTRUCTOR Work Phone: [facility] 08-16-2022 11:24-0400 Body mass index (BMI) [Percentile] Per age and sex 26.15 % Cathy Metamora GOLD MARKER.TECHNOLOGY EDUCATION INSTRUCTOR Work Phone: [facility] 08-16-2022 11:24-0400 Body weight 50.26 kg Cathy Metamora GOLD MARKER.TECHNOLOGY EDUCATION INSTRUCTOR Work Phone: [facility] 08-09-2022 11:40-0400 Body height 162 cm Cathy Metamora GOLD MARKER.TECHNOLOGY EDUCATION INSTRUCTOR Work Phone: [facility] 08-09-2022 11:40-0400 Body mass index (BMI) [Percentile] Per age and sex 19.8 % Cathy Metamora GOLD MARKER.TECHNOLOGY EDUCATION INSTRUCTOR Work Phone: [facility] 08-09-2022 11:40-0400 Body weight 48.99 kg Cathy Krishna GOLD MARKER.TECHNOLOGY EDUCATION INSTRUCTOR Work Phone: [facility] 08-09-2022 11:40-0400 Diastolic blood pressure 70 mm[Hg] Cathy Krishna GOLD MARKER.TECHNOLOGY EDUCATION INSTRUCTOR Work Phone: [facility] 08-09-2022 11:40-0400 Systolic blood pressure 110 mm[Hg] Cathy Metamora GOLD MARKER.TECHNOLOGY EDUCATION INSTRUCTOR Work Phone: [facility] Encounters Encounter Date Encounter Type Care Provider Facility Start: 02-18-2025 End: 02-18-2025 Emergency department patient visit Vladislav Berger MD Work Phone: [facility] Comment on above: Syncope, unspecified syncope type (Primary Dx); Acute nonintractable headache, unspecified headache type Start: 09-26-2024 End: 09-26-2024 Patient encounter procedure Elizabeth Mistry GOLD MARKER.CNM Work Phone: OB/Gynecology Comment on above: Encounter for IUD re moval (Primary Dx); Mood changes; General counseling and advice for contraceptive management Start: 09-26-2024 End: 09-26-2024 ambulatory ELIZABETH MISTRY Facility:[facility] Start: 09-13-2023 End: 09-13-2023 Patient encounter procedure Elizabeth Mistry GOLD MARKER.CNM Work Phone: OB/Gynecology Comment on above: Mood changes (Primar y Dx); Reaction, situational, acute, to stress; Partner relational problem Start: 09-20-2022 End: 09-20-2022 Patient encounter procedure Cathy Keller APRN.JAMIL Work Phone: OB/Gynecology Comment on above: IUD check up (Primar y Dx) Start: 08-16-2022 End: 08-16-2022 Patient encounter procedure Cathy Keller APRN.TECHNOLOGY EDUCATION INSTRUCTOR Work Phone: OB/Gynecology Comment on above: Encounter for IUD in sertion (Primary Dx) Start: 08-09-2022 End: 08-09-2022 Patient encounter procedure Cathy Keller APRN.TECHNOLOGY EDUCATION INSTRUCTOR Work Phone: OB/Gynecology Comment on above: Encounter for insert ion of intrauterine contraceptive device (IUD) (Primary Dx) Start: 07-18-2022 End: 07-18-2022 Patient encounter procedure Maxim Villarreal Work Phone: Podiatry Comment on above: Ingrowing toenail (P rimary Dx) Start: 06-27-2022 End: 06-27-2022 Patient encounter procedure Maxim Villarreal Work Phone: Podiatry Comment on above: Ingrowing toenail wi th infection (Primary Dx) Procedures Date Procedure Procedure Detail Performing Clinician Start: 02-18-2025 Comprehensive metabo lic panel Dmitriy Cao MD Work Phone: Start: 02-18-2025 Ecg routine ecg w/le ast 12 lds i&r only Dmitriy Cao MD Work Phone: Start: 08-16-2022 Urine test visual color cmprsn asif Keller GOLD MARKER.TECHNOLOGY EDUCATION INSTRUCTOR Work Phone: Plan of Treatment Date Care Activity Detail Author Start: 2080 RSV Immunization for Adults (1 - 1-dose 75+ series) RSV Immunization for Adults (1 - 1-dose 75+ series) [facility] Start: 2055 Zoster Vaccines (1 of 2) Zoste r Vaccines (1 of 2) [facility] Start: 05-04-2028 Urine microalbumin profile DTaP,Tdap,Td Vaccine (7 - Td or Tdap) [facility] Start: 06-16-2025 Influenza vaccination Influenz a Vaccine (Season Ended) [facility] Start: 2024 Hepatitis B Vaccines (1 of 3 - 19+ 3-dose series) Hepatitis B Vaccines (1 of 3 - 19+ 3-dose series) [facility] Start: 06-16-2024 COVID-19 Vaccine ( season) COVID-19 Vaccine ( season) [facility] Start: 06-16-2024 Covid-19 Vaccine ( season) Covid-19 Vaccine ( season) [facility] Start: 06-16-2024 Influenza vaccination Influenza Vacc ine (#1) [facility] Start: 09-15-2023 Meningococcal Conjug ate Vaccine (2 - 2-dose series) Meningococcal Conjugate Vaccine (2 - 2-dose series) [facility] Start: 2023 Chlamydia Screening (18-24) Chlamydia Screening (18-24) [facility] Start: 2023 Depression Screening Depression Scre ening [facility] Start: 2023 GC (Gonorrhea) Scree ying (18-24) GC (Gonorrhea) Screening (18-24) [facility] Start: 2023 Hepatitis C Screening Hepatitis C [facility] Start: 2023 Hepatitis C screening Hepatitis C Sc abbe [facility] Start: 2023 HIV Screening HIV Screening [facility] Start: 2023 HIV screening HIV Screening [facility] Start: 2023 Screening for Chlamy dean trachomatis Chlamydia Screening (18-24) [facility] Start: 06-16-2023 Covid-19 Vaccine ( season) Covid-19 Vaccine () [facility] Start: 06-16-2023 Influenza vaccination Influenza Vacc ine (#1) [facility] Start: 10-16-2022 Depression Assessment Depression Ass essment [facility] Start: 06-16-2022 Influenza vaccination INFLUENZA (#1) [facility] Start: 10-14-2021 COVID-19 VACCINE (3 - Booster for Pfizer series) COVID-19 VACCINE (3 - Booster for Pfizer series) [facility] Start: 2021 Meningococcal B Vacc ine: Consider Based On Risk (1 of 2 - Patient Seeks Protection) Meningococcal B Vaccine: Consider Based On Risk (1 of 2 - Patient Seeks Protection) [facility] Start: 2021 MENINGOCOCCAL CONJUG ATE (1 - 2-dose series) MENINGOCOCCAL CONJUGATE (1 - 2-dose series) [facility] Start: 07-09-2021 COVID-19 VACCINE (3 - Booster for Pfizer series) COVID-19 VACCINE (3 - Booster for Pfizer series) [facility] Start: 2020 CHLAMYDIA SCREENING (<18) CHLAMYDIA SCREENING (<18) [facility] Start: 2020 GC (GONORRHEA) SCREE YING (<18) GC (GONORRHEA) SCREENING (<18) [facility] Start: 2020 HPV Vaccines (1 - 3- dose series) HPV Vaccines (1 - 3-dose series) [facility] Start: 2019 PEDS TO ADULT TRANSI TION ANNUAL ASSESSMENT PEDS TO ADULT TRANSITION ANNUAL ASSESSMENT [facility] Start: 2017 Adult depression screening assessment DEPRESSION SCREENING [facility] Start: 2017 PEDS TO ADULT TRANSI TION INITIAL DISCUSSION PEDS TO ADULT TRANSITION INITIAL DISCUSSION [facility] Start: 2016 DTaP/Tdap/Td Vaccine s (6 - Tdap) DTaP/Tdap/Td Vaccines (6 - Tdap) [facility] Start: 2016 HPV VACCINE (1 - 2-d ose series) HPV VACCINE (1 - 2-dose series) [facility] [facility] Start: 2016 Urine microalbumin profile DTAP,TDAP,TD (6 - Tdap) [facility] Start: 2015 MENINGOCOCCAL B: Consider based on risk (1 of 2 - Risk Bexsero 2-dose series) MENINGOCOCCAL B: Consider based on risk (1 of 2 - Risk Bexsero 2-dose series) [facility] Start: 05-05-2006 Application of denta l fluoride varnish Fluoride Varnish [facility] Start: 2005 HEPATITIS B (1 of 3 - 3-dose series) HEPATITIS B (1 of 3 - 3-dose series) [facility] Start: 2005 HIV screening HIV Screening [facility] Insertion intrauteri ne device iud INSERT INTRAUTERINE DEVICE Procedures Routine Encounter for insertion of intrauterine contraceptive device (IUD) Ordered: 08/09/2022 [facility] Work Phone: Comment on above: Ordered: 08/09/2022 Insertion intrauteri ne device iud INSERT INTRAUTERINE DEVICE Procedures Routine Encounter for IUD insertion Ordered: 08/16/2022 [facility] Work Phone: Comment on above: Ordered: 08/16/2022 Removal intrauterine device iud REMOVE INTRAUTERINE DEVICE Procedures Routine Encounter for IUD removal Ordered: 09/26/2024 [facility] Work Phone: Comment on above: Ordered: 09/26/2024 [facility] Immunizations Immunization Date Immunization Notes Care Provider Troy hassan 08-14-2020 influenza virus vacc ine, unspecified formulation Elizabeth Mistry GOLD MARKER.CNM Work Phone: [facility] 07-27-2010 diphtheria, tetanus toxoids and acellular pertussis vaccine Maxim Villarreal Work Phone: [facility] 07-27-2010 measles, mumps and rubella virus vaccine Maxim Villarreal Work Phone: [facility] 07-27-2010 pneumococcal conjuga te vaccine, 13 valent Maxim Testrake Work Phone: [facility] 07-27-2010 poliovirus vaccine, inactivated Maxim Testrake Work Phone: [facility] 07-27-2010 varicella virus vaccine Delon hew Testrake Work Phone: [facility] 09-13-2007 diphtheria, tetanus toxoids and acellular pertussis vaccine Maxim Testrake Work Phone: [facility] 09-13-2007 haemophilus influenz ae type b vaccine, HbOC conjugate Maxim Testrake Work Phone: [facility] 09-13-2007 pneumococcal conjuga te vaccine, 13 valent Maxim Testrake Work Phone: [facility] 09-14-2006 measles, mumps and rubella virus vaccine Maxim Testrake Work Phone: [facility] 09-14-2006 pneumococcal conjuga te vaccine, 13 valent Maxim Testrake Work Phone: [facility] 09-14-2006 varicella virus vaccine Delon hew [employer] Work Phone: [facility] 04-13-2006 diphtheria, tetanus toxoids and acellular pertussis vaccine Maxim Testrake Work Phone: [facility] 04-13-2006 poliovirus vaccine, inactivated Maxim Testrake Work Phone: [facility] 04-10-2006 haemophilus influenz ae type b vaccine, HbOC conjugate Maxim Testrake Work Phone: [facility] 03-09-2006 diphtheria, tetanus toxoids and acellular pertussis vaccine Maxim Testrake Work Phone: [facility] 03-09-2006 haemophilus influenz ae type b vaccine, HbOC conjugate Maxim Testrake Work Phone: [facility] 03-09-2006 hepatitis B immune globulin Maxim Testrake Work Phone: [facility] 03-09-2006 poliovirus vaccine, inactivated Maxim Testrake Work Phone: [facility] 2005 diphtheria, tetanus toxoids and acellular pertussis vaccine Maxim Villarreal Work Phone: [facility] 2005 haemophilus influenz ae type b vaccine, HbOC conjugate Maxim Villarreal Work Phone: [facility] 2005 hepatitis B immune globulin Maxim Villarreal Work Phone: [facility] 2005 poliovirus vaccine, inactivated Maxim Villarreal Work Phone: [facility] 2005 hepatitis B immune globulin Maxim Villarreal Work Phone: [facility] Payers Date Payer Category Payer Commercial Managed C are - [employer] [id number] 2022 Unknown [employer] PPO [id number] 2022-Present [phone] [address] [place] [address] PPO [id number] 2022 Unknown [id number] Social History Date Type Detail Facility Start: 08-09-2022 Tobacco smoking status NHIS Never smoked tobacco [facility] Start: 06-27-2022 End: 09-26-2024 Alcohol intake Current non-drinker of alcohol (finding) [facility] Start: 2005 Sex Assigned At Not on file [facility] Start: 06-17-2022 End: 08-15-2022 Exposure to SARS-CoV-2 (event) Not sure [facility] Start: 08-09-2022 Tobacco use and exposure Smokeless tobacco non-user [facility] Start: 09-13-2023 End: 09-26-2024 History of Social function [facility] Start: 09-13-2023 End: 09-26-2024 Tobacco use panel [facility] National Score (1-100), lower number is lower risk 47 [facility] Tobacco smoking status NHIS Tobacco smoking consumption unknown [facility] Start: 02-18-2025 Sex Female (finding) [facility] NEGATED: Highlighted rowStart: NED History of tobacco use Passive smoker [facility] Clinical Notes 06-27-2022 to 02-18-2025 Discharge InstructionsAttachmentsMaroc Antonio Ventura RN - 02/18/2025 2:31 AM EDTMarco Antonio Ventura RN - 02/18/2025 2:31 AM EDTVladislav Berger MD - 02/18/2025 12:47 AM EDTPatient Instructions Note Date & Type Note Facility 02-18-2025 Hospital Discharg e instructions Dmitriy Cao MD - 02/18/2025 3:17 AM EDT Call your primary care doctor today to schedule follow-up appointment. Return to the emergency department for new or worsening symptoms. The following attachments cannot be sent through Care Everywhere.Syncope (Fainting) Discharge Instructions (Yakut)documented in this encounter [facility] 02-18-2025 Emergency department Note 100cc of vomit. Nausea and vomiting. This is also the first instance of diarrhea, liquid stool. [facility] 02-18-2025 Emergency department Note 100cc of vomit. Nausea and vomiting. This is also the first instance of diarrhea, liquid stool. Emergency Department Encounter [facility] Patient: Harper Epperson : 2005 Date of Evaluation: 02/18/2025 ED Supervising Physician: Vladislav Berger MD I personally evaluated Harper Epperson and made/approved the management plan and take responsibility for the patient management. This will serve as my Supervisory note and shared attestation. I did perform a substantive portion of the visit including all aspects of the Medical Decision Making. I wore appropriate PPE for the entirety of this encounter. In brief, Harper Epperson is a 19 y.o. that presents to the emergency department for evaluation after a syncopal episode. Patient states that she used a vape pen to smoke some marijuana. Approximately 30 minutes later she became lightheaded and briefly passed out. She fell and did hit her head on the floor. Friend is here with her and states that she did not fall hard nor hit her head very hard. Patient is complaining some pain on the right side of the forehead but denies any other complaints. Patient reports 1 previous syncopal episode approximately 1 year ago for which she did not go to the hospital. She states at that time it was a very hot day. She also reports smoking marijuana and then passed out later while making waffles. Denies any history of known heart disease. Unaware of any family history of any heart problems. Focused exam: Awake, alert, no apparent distress. Sitting comfortably in the bed. Normocephalic, atraumatic. Normal heart rate and heart sounds. Normal respiratory rate and effort. Normal lung sounds. Nontender to palpation along the chest wall, abdomen, pelvis. Upper and lower extremities unremarkable with normal range of motion at all joints and no tenderness to palpation. Brief ED course/MDM: Patient presents after syncopal episode described in HPI. EKG was obtained shortly after arrival per my interpretation shows sinus arrhythmia with no ST elevation, depression, ectopy, or abnormal intervals. No evidence of A-V dissociation, Brugada, QT prolongation, WPW, ARVD, obstructive cardiomyopathy, or RV strain. Workup in the ED with CBC, BMP, screen, and troponin with concern for possibility of electrolyte abnormality induced arrhythmia, anemia, or other possible etiology of her syncopal episode. Workup shows no significant derangements other than hypokalemia at 3.1. Patient was provided initial oral repletion here in the ED. Patient did have mild headache. She did hit her head when she fell. No focal or lateralizing deficits to indicate the need for CT scan. No evidence of injury on physical exam. She was provided Tylenol in the ED with improvement in headache. At this point I feel she is safer discharge with outpatient follow-up with her primary care. I recommend she call first thing in the morning to schedule appropriate follow-up. Return precautions were discussed and questions answered at the bedside prior to discharge. Family was concerned that she did appear jaundice recently. Does not appear jaundiced here today. We did add on a hepatic panel which does show a mild hyperbilirubinemia. Patient was instructed to also discuss this with her primary care for further evaluation. Diagnostics interpreted by me: EKG; see my interpretation elsewhere in the chart I personally discussed the patient's management with other clinicians: none All diagnostic, treatment, and disposition decisions were made by myself in conjunction with the Resident. I also supervised ventura portions of any procedures performed by the Resident. For all further details of the patient's emergency department visit, please see their documentation. (Comment: Please note this report has been produced using speech recognition software and may contain errors related to that system including errors in grammar, punctuation, and spelling, as well as words and phrases that may be inappropriate. If there are any questions or concerns please feel free to contact the dictating provider for clarification.) Vladislav Berger MD Acute Care [facility] Vladislav Berger MD 02/18/25 0255 documented in this encounter [facility] 02-18-2025 Physician Emergency department Note Emergency Department Encounter [facility] Patient: Harper Epperson : 2005 Date of Evaluation: 02/18/2025 ED Supervising Physician: Vladislav Berger MD I personally evaluated Harper Epperson and made/approved the management plan and take responsibility for the patient management. This will serve as my Supervisory note and shared attestation. I did perform a substantive portion of the visit including all aspects of the Medical Decision Making. I wore appropriate PPE for the entirety of this encounter. In brief, Harper Epperson is a 19 y.o. that presents to the emergency department for evaluation after a syncopal episode. Patient states that she used a vape pen to smoke some marijuana. Approximately 30 minutes later she became lightheaded and briefly passed out. She fell and did hit her head on the floor. Friend is here with her and states that she did not fall hard nor hit her head very hard. Patient is complaining some pain on the right side of the forehead but denies any other complaints. Patient reports 1 previous syncopal episode approximately 1 year ago for which she did not go to the hospital. She states at that time it was a very hot day. She also reports smoking marijuana and then passed out later while making waffles. Denies any history of known heart disease. Unaware of any family history of any heart problems. Focused exam: Awake, alert, no apparent distress. Sitting comfortably in the bed. Normocephalic, atraumatic. Normal heart rate and heart sounds. Normal respiratory rate and effort. Normal lung sounds. Nontender to palpation along the chest wall, abdomen, pelvis. Upper and lower extremities unremarkable with normal range of motion at all joints and no tenderness to palpation. Brief ED course/MDM: Patient presents after syncopal episode described in HPI. EKG was obtained shortly after arrival per my interpretation shows sinus arrhythmia with no ST elevation, depression, ectopy, or abnormal intervals. No evidence of A-V dissociation, Brugada, QT prolongation, WPW, ARVD, obstructive cardiomyopathy, or RV strain. Workup in the ED with CBC, BMP, screen, and troponin with concern for possibility of electrolyte abnormality induced arrhythmia, anemia, or other possible etiology of her syncopal episode. Workup shows no significant derangements other than hypokalemia at 3.1. Patient was provided initial oral repletion here in the ED. Patient did have mild headache. She did hit her head when she fell. No focal or lateralizing deficits to indicate the need for CT scan. No evidence of injury on physical exam. She was provided Tylenol in the ED with improvement in headache. At this point I feel she is safer discharge with outpatient follow-up with her primary care. I recommend she call first thing in the morning to schedule appropriate follow-up. Return precautions were discussed and questions answered at the bedside prior to discharge. Family was concerned that she did appear jaundice recently. Does not appear jaundiced here today. We did add on a hepatic panel which does show a mild hyperbilirubinemia. Patient was instructed to also discuss this with her primary care for further evaluation. Diagnostics interpreted by me: EKG; see my interpretation elsewhere in the chart I personally discussed the patient's management with other clinicians: none All diagnostic, treatment, and disposition decisions were made by myself in conjunction with the Resident. I also supervised ventura portions of any procedures performed by the Resident. For all further details of the patient's emergency department visit, please see their documentation. (Comment: Please note this report has been produced using speech recognition software and may contain errors related to that system including errors in grammar, punctuation, and spelling, as well as words and phrases that may be inappropriate. If there are any questions or concerns please feel free to contact the dictating provider for clarification.) Vladislav Berger MD [facility] Vladislav Berger MD 02/18/25254 [employer] Phone: 09-26-2024 History of Presen t illness Narrative Harper Epperson is a 19 year old female who presents for problem visit of continued mood changes. HPI: Seen in office last year for similar complaints and was contemplating removing IUD. She stated she has made several life changes such as going away to college and breaking up with previous boyfriend. She feels better but continues to have episodes of crying. Reports feeling extremely emotional whenever she is left alone. Just sits there and continuously cries for no reason. Unsure if fear or anxiety. Patient's mother again concerned over continued mood changes, crying spells and requests patient's hormones be tested. Patient is currently sexually active and voicing a need for control other than condoms. She is thinking about removing IUD to see if there is any effect on mood. She is torn over removal because she likes the IUD for contraception and no periods. OB History T0 L0 SAB0 IAB0 Ectopic0 Multiple0 Live Births0 [employer] History LMP: LMP Unknown, IUD Age at Menarche: 12 Age at First : Age at Menopause: [employer] History Comments: Sexual Activity: Yes; No partner data on record; male partner Contraception: No contraception data on record No past medical history on file. No past surgical history on file. No family history on file. Social History Tobacco Use Smoking status: Never Passive exposure: Never Smokeless tobacco: Never Vaping Use Vaping status: Never Used Substance Use Topics Alcohol use: No Drug use: No Current Outpatient Medications Medication Sig levonorgestrel (KYLEENA) 17.5 mcg/24 hrs (5 yrs) 19.5 mg IUD 1 Each by INTRAUTERINE route as directed. No current facility-administered medications for this visit. Allergies As of Date: 09/26/2024 Allergen Noted Reaction ADHESIVE TAPE (ROSINS) 10/14/2019 Hives and Other: See Comments BACITRACIN 10/14/2019 Hives and Unknown NEOMYCIN 10/14/2019 Hives and Unknown POLYMYXIN B 10/14/2019 Hives and Unknown SEASONAL ALLERGIES 12/04/2014 Cough and Itching Fully Assessed 09/13/2023 REVIEW OF SYSTEMS Abdomen: No bloating, early satiety, indigestion, or increased flatulence. No abdominal pain, nausea, vomiting, diarrhea, or constipation. Bladder: No dysuria, gross hematuria, urinary frequency, urinary urgency, or incontinence. Breast: No breast lumps, nipple d/c, overlying skin changes, redness or skin retraction. Expanded ROS: N/A Allergies and current medication updated:Yes SENSITIVE EXAM: Sensitive exam not performed. EXAM: BP 90/64 Wt 99 lb (44.9kg) GENERAL: emotional, female in mild distress HEENT: Normocephalic and atraumatic NECK: Supple and full range of motion DERMATOLOGY: Normal and without lesions BREAST: deferred CHEST: Normal inspiratory effort ABDOMEN: Deferred PELVIC: deferred BIMANUAL: deferred NEURO: alert and oriented x3,exam grossly non-focal EXTREMITIES: normal ASSESSMENT AND PLAN: Assessment & Plan Mood changes General counseling and advice for contraceptive management Encounter for IUD removal Orders: REMOVE INTRAUTERINE DEVICE - Discussed hormonal and mood changes can occur with hormone based contraception - Establishing care with a counselor tomorrow - May remove IUD after consideration - Reviewed other options of contraception such as NuvaRing, Phexxi, Condoms - Order placed for IUD removal - Patient will call and schedule if desires - Support provided Elizabeth Mistry APRN.CNM documented in this encounter [facility] 09-26-2024 Note HNO ID: [id number] Author: ELIZABETH MISTRY APRN.CNM Service: ? Author Type: Passenger Train Braker Type: Progress Notes Filed: 09/26/2024 16:48 Note Text: Harper Epperson is a 19 year old female who presents for problem visit of continued mood changes. HPI: Seen in office last year for similar complaints and was contemplating removing IUD. She stated she has made several life changes such as going away to college and breaking up with previous boyfriend. She feels better but continues to have episodes of crying. Reports feeling extremely emotional whenever she is left alone. Just sits there and continuously cries for no reason. Unsure if fear or anxiety. Patient's mother again concerned over continued mood changes, crying spells and requests patient's hormones be tested. Patient is currently sexually active and voicing a need for control other than condoms. She is thinking about removing IUD to see if there is any effect on mood. She is torn over removal because she likes the IUD for contraception and no periods. OB History T0 L0 SAB0 IAB0 Ectopic0 Multiple0 Live Births0 [employer] History LMP: LMP Unknown, IUD Age at Menarche: 12 Age at First : Age at Menopause: [employer] History Comments: Sexual Activity: Yes; No partner data on record; male partner Contraception: No contraception data on record No past medical history on file. No past surgical history on file. No family history on file. Social History Tobacco Use Smoking status: Never Passive exposure: Never Smokeless tobacco: Never Vaping Use Vaping status: Never Used Substance Use Topics Alcohol use: No Drug use: No Current Outpatient Medications Medication Sig levonorgestrel (KYLEENA) 17.5 mcg/24 hrs (5 yrs) 19.5 mg IUD 1 Each by INTRAUTERINE route as directed. No current facility-administered medications for this visit. Allergies As of Date: 09/26/2024 Allergen Noted Reaction ADHESIVE TAPE (ROSINS) 10/14/2019 Hives and Other: See Comments BACITRACIN 10/14/2019 Hives and Unknown NEOMYCIN 10/14/2019 Hives and Unknown POLYMYXIN B 10/14/2019 Hives and Unknown SEASONAL ALLERGIES 12/04/2014 Cough and Itching Fully Assessed 09/13/2023 REVIEW OF SYSTEMS Abdomen: No bloating, early satiety, indigestion, or increased flatulence. No abdominal pain, nausea, vomiting, diarrhea, or constipation. Bladder: No dysuria, gross hematuria, urinary frequency, urinary urgency, or incontinence. Breast: No breast lumps, nipple d/c, overlying skin changes, redness or skin retraction. Expanded ROS: N/A Allergies and current medication updated:Yes SENSITIVE EXAM: Sensitive exam not performed. EXAM: BP 90/64 Wt 99 lb (44.9kg) GENERAL: emotional, female in mild distress HEENT: Normocephalic and atraumatic NECK: Supple and full range of motion DERMATOLOGY: Normal and without lesions BREAST: deferred CHEST: Normal inspiratory effort ABDOMEN: Deferred PELVIC: deferred BIMANUAL: deferred NEURO: alert and oriented x3,exam grossly non-focal EXTREMITIES: normal ASSESSMENT AND PLAN: Assessment AND Plan Mood changes General counseling and advice for contraceptive management Encounter for IUD removal Orders: REMOVE INTRAUTERINE DEVICE - Discussed hormonal and mood changes can occur with hormone based contraception - Establishing care with a counselor tomorrow - May remove IUD after consideration - Reviewed other options of contraception such as NuvaRing, Phexxi, Condoms - Order placed for IUD removal - Patient will call and schedule if desires - Support provided Elizabeth Mistry APRN.CNM [facility] 09-13-2023 Instructions Elizabeth Mistry APRN.CNM - 09/13/2023 2:22 PM EST Here are some links for wonderful Providers here in the community and surrounding areas. Do not hesitate to contact their offices, many are offering virtual visits during this time. If you are in suicidal crisis, please call or text [phone]-TALK ( ) or visit the National Suicide Prevention Lifeline website. [facility] Psychology, Psychiatry, Counseling Connect with therapist/ can do virtual visits [phone] Referral to the [facility] To schedule an appointment, please call the Center for [facility] Appointment Line: [phone] option 1 [facility] - [place], [place] [address] [place] [address] [facility] [address] [place] [address] [facility] [address] [place] [address] [facility] [address] [place], [place] [id number] Psychotherapy resources outside of [facility] are listed below [facility] Web: https://www.Dwllr / Support International Online Provider Directory https://Hammer & Chisel/ [facility] https://RelinkLabs / [facility] Web: https://O3b Networks/ [employer] [facility] [employer] [facility] Web: https://letsmote.com.effectiveForbes Travel Guideliving.OrbFlex / [employer] Web: https://Gamervision/location /[facility]/[place]/ [facility] Web: https://www.[facility]. org/ [facility] Web: https://[facility].org/ Recovery Resources Mental health and substance abuse help Web: https://www.Vidable CRISIS: CRISIS HOTLINE 058.185.9505315.998.4606, 911 or go to the nearest . [facility] [phone] / [facility] [phone] https://www.[facility].org Crisis text line text the word HOME to [phone] [facility] [address] [place] [address] [facility] [address] www.bridgerClerky Aleisha [facility] [address] [email or web address] [phone] Holding space psychotherapy Aida Salgado BICYCLE ASSEMBLER CANNING MACHINE OPERATOR-S [address] [facility] www.FTL SOLAR [phone]/ Brett [phone] They all offer virtual. All work with trauma Support groups Online support meetings PSI https://www..net/get- help/jil-uhtbjq-zbvrzew-meeting s/ Here are the support groups they offer: Support of parents of 1 to 4 years old children POEM ( Outreach and Encouragement for Moms) offers free support for mothers experiencing depression, anxiety, and other mood and anxiety disorders. Masks are recommended but not required. No pre-registration required. Babies in arms welcome. meetings now take place on the and Monday of each month Location: [facility] [address] [place] [address] Room 122 (library room) 7-8:00 p.m. When you enter the [facility] parking lot off of [address] the entrance door closest to our meeting room is on the front of the building toward the right. For those who are more comfortable with a virtual platform, POEM offers online support group options several days of the week. To register for an online group or to find out more about POEM, website at: https://[place].org/get-help/[facility] surgeryrapvav-narxcm-ujyjoa/sylvain-servi michelle/ offer a confidential helpline: private Facebook group is called [facility] - [place] Clem[place] Here are the groups they offer: Traumatic childbirth resources: Http://pattch.org/ https://www.[facility]heide.[employer]/ documented in this encounter [facility] 09-13-2023 History of Presen t illness Narrative Harper Epperson is a 18 year old female who presents for problem visit of mood changes. Had Kyleena placed last year. Pleased with IUD in general due to no periods but has noticed increasing changes in mood for the past 2 months. Stated has been crying a lot for no reason and also gets mad at everything. Patient's mother suggested she be seen to discuss removal of IUD. OB History T0 L0 SAB0 IAB0 Ectopic0 Multiple0 Live Births0 REVIEW OF SYSTEMS Abdomen: No bloating, early satiety, indigestion, or increased flatulence. No abdominal pain, nausea, vomiting, diarrhea, or constipation. Bladder: No dysuria, gross hematuria, urinary frequency, urinary urgency, or incontinence. Breast: No breast lumps, nipple d/c, overlying skin changes, redness or skin retraction. Expanded ROS: N/A Allergies and current medication updated:Yes EXAM: BP 110/62 Wt 105 lb (47.6kg) GENERAL: upset and emotional, female in mild distress HEENT: Normocephalic and atraumatic NECK: Supple and full range of motion DERMATOLOGY: Normal and without lesions BREAST: deferred CHEST: Normal inspiratory effort ABDOMEN: Deferred PELVIC: deferred BIMANUAL: deferred NEURO: alert and oriented x3,exam grossly non-focal EXTREMITIES: normal ASSESSMENT/PLAN: 1. Mood changes - ICD9: 296.90, ICD10: R45.86 (primary diagnosis) 2. Reaction, situational, acute, to stress - ICD9: 308.9, ICD10: F43.0 3. Partner relational problem - ICD9: V61.10, ICD10: Z63.0 - After long discussion with patient it was determined stress and mood changes could be due to current relationship. Boyfriend is living with her and family due to divorce. Partner struggling with mental health/ depression. Taking medications but not consistently. - Patient getting ready to graduate high school and voiced concern over plans after graduation. - Patient denies SI/HI - Recommended counseling services - Discussed that mood changes can occur with forms of progesterone and option to remove IUD is available. Patient declines removal at this time. RTO- As needed or if desires removal of IUD CASI West APRN.CNM documented in this encounter [facility] 09-20-2022 History of Presen t illness Narrative Harper Epperson presents today for IUD check. She had a Kyleena placed on 08/16/22. She has had some cramping since placement. REVIEW OF SYSTEMS: PAIN ASSESSMENT: Negative for pain, history of chronic pain, or current treatment for a chronic pain condition. PHYSICAL EXAMINATION: Wt 109 lb 9.6 oz (49.7kg) EXTERNAL GENITALIA: Normal genitalia and Bartholins, Urethra, Sken'e normal CERVIX: smooth, no lesions. IUD strings visible. UTERUS: normal size ADNEXA: negative for tenderness or masses IMPRESSION/PLAN: IUD correctly positioned. Follow up for annual exam or sooner if needed. Cathy Keller APRN.CNP Medical Decision Making: Problems: Low: Acute, uncomplicated illness or injury Risk: Low: Low risk from testing/treatment Medical Decision Making Level: 3 - Low documented in this encounter [facility] 08-16-2022 Instructions Mariam Brock LPN - 08/16/2022 11:25 AM EDT POST IUD INSTRUCTIONS You may have irregular bleeding during the first 3 months of use. You may have mild-severe cramping for the next 48 hours. You may use over the counter medication (Motrin, Tylenol) as needed. Your IUD must be removed or replaced based on the following table: IUD Type Removed or replaced within: Geeta 3 years Kyleena 5 years Mirena 8 years Paragard 10 years Call my office for signs/symptoms of infection such as severe cramping, fever, or unusual bleeding. Check for string placement as instructed by your doctor. If you have any additional questions, please contact the office. documented in this encounter [facility] 08-16-2022 History of Presen t illness Narrative Harper presents today for IUD insertion for contraception. No LMP recorded (lmp unknown). (Menstrual status: Drug Induced Amenorrhea). GC/chlamydia: Not done: no risk factors and/or patient declines screening test: negative Side effects including irregular bleeding were discussed with the patient. The patient understands that it should be removed in 5 years or sooner if the patient desires a . IUD source: office provided IUD lot #: [id number] Exp date: 06/15/24 UNIVERSAL PROTOCOL / SAFETY CHECKLIST Procedure to be Performed: Kyleena insertion Sign In: A Moment of CARE was completed. Personnel directly involved with the procedure wore the appropriate PPE (Personal Protective Equipment). Patient/Surrogate Stated/Verified: PATIENT VERIFIED(optional for EMERGENT procedures): Patient name, Date of , Relevant allergies, and The intended procedure Time Out Communication: Intended patient and procedure match the source documents. Consent documented and matches the intended procedure. Sign Out: SIGN OUT (optional for EMERGENT procedures): No specimen collected. All instruments, equipment, possible retained foreign bodies accounted for. Post-procedure follow-up management communicated and Plan of Care Visit completed when applicable. The cervix was prepped with betadine. The uterus sounded to 7.5 cm and the uterus is Retroverted.. Using sterile technique, the Kyleena IUD was inserted without difficulty and the string was cut to 2cm from the external os of the cervix. Patient tolerated procedure well. PLAN: Patient was advised to observe for signs and symptoms of infection including but not limited to fever, malodorous vaginal discharge and/or pain. The patient was told to check the string monthly for accurate placement. Bleeding expectations were reviewed. Follow up in one month. Cathy Keller APRN.CNP documented in this encounter [facility] 08-09-2022 History of Presen t illness Narrative CONTRACEPTION Harper Epperson is a 16 year old No obstetric history on file. who presents today for contraception. She is interested in an IUD. She has been doing Depo for just over 1 yr, she is not having any periods. No LMP recorded. Patient is premenarcheal.. HPI: Dysmenorrhea No Heavy menses No Irregular menses No SUBJECTIVE Sexually active: Yes Smoking No Last PAP Method of control: Depo Provera satisfactory Relevant Past Medical History: No relevant past medical history OB History No obstetric history on file.No past medical history on file.No past surgical history on file.No family history on file.SOCIAL HISTORY Social History Tobacco Use Smoking status: Never Smokeless tobacco: Never Vaping Use Vaping Use: Never used Substance Use Topics Alcohol use: No Drug use: No No past surgical history on file. Current Outpatient Medications Medication Sig medroxyPROGESTERone (DEPO-PROVERA) 150 mg/mL injection Inject 1 mL intramuscularly every 12 weeks. cephALEXin (KEFLEX) 500 mg capsule Take 1 capsule by mouth three times daily. (Patient not taking: Reported on 07/18/2022) loratadine 5 mg chewable tablet Take 5 mg by mouth once daily. (Patient not taking: No sig reported) No current facility-administered medications for this visit. Allergies As of Date: 08/09/2022 Allergen Noted Reaction ADHESIVE TAPE (ROSINS) 10/14/2019 Hives and Other: See Comments BACITRACIN 10/14/2019 Hives and Unknown NEOMYCIN 10/14/2019 Hives and Unknown POLYMYXIN B 10/14/2019 Hives and Unknown SEASONAL ALLERGIES 12/04/2014 Cough and Itching Fully Assessed 07/18/2022 OBJECTIVE: General Appearance: Well appearing, alert, in no acute distress, well-hydrated, well nourished. Skin: Color normal Lungs: normal inspiratory effort ASSESSMENT/PLAN: 1. Encounter for insertion of intrauterine contraceptive device (IUD) - ICD9: V25.11, ICD10: Z30.430 - INSERT INTRAUTERINE DEVICE- Kyleena - Cytotec sent in Cathy Keller APRN.CNP I spent a total of 25 minutes on the date of the service which included preparing to see the patient, [id number] patient care, completing clinical documentation, obtaining and/or reviewing separately obtained history, counseling and educating the patient/family/caregiver, and ordering medications, tests, or procedures. documented in this encounter [facility] 07-18-2022 History of Presen t illness Narrative UNIVERSAL PROTOCOL / SAFETY CHECKLIST Procedure to be Performed: partial nail matrixectomy, b/l hallux medial nail border Sign In: A Moment of CARE was completed. Personnel directly involved with the procedure wore the appropriate PPE (Personal Protective Equipment). No special equipment needed. Patient/Surrogate Stated/Verified: PATIENT VERIFIED(optional for EMERGENT procedures): Patient name, Date of , Relevant allergies, and The intended procedure Time Out Communication: Intended patient and procedure match the source documents. Consent documented and matches the intended procedure. No relevant labs, photos, and/or imaging studies were applicable for review. Correct side/site marked and visible. Medications required for procedure verified. No fire risk assessment and interventions applicable. No implant(s) inserted. Sign Out: SIGN OUT (optional for EMERGENT procedures): No specimen collected. All instruments, equipment, possible retained foreign bodies accounted for. Post-procedure follow-up management communicated and Plan of Care Visit completed when applicable. Marleny Perez LPN FOLLOW UP PODIATRIC OFFICE VISIT Chief Complaint: This 16 year old who presents for follow up:ingrowing toenail of b/l hallux Patient presents to clinic for follow-up ingrowing toenail of b/l hallux She complains of pain to medial border of b/l hallux Patient denies any drainage or redness currently Does report the right one is more painful than the left PAIN EVALUATION 07/18/2022 1417 Pain Level: 4 Pain Location: Toe Description: Sharp Duration Amount of Time: 2 Duration Units: Days Frequency: Intermittent Intervention/Comfort measure: Reposition;Relaxation;Distracti ons No results found for: HBA1C PCP: Jim Nguyen MD No past medical history on file. Current Outpatient Medications Medication Sig medroxyPROGESTERone (DEPO-PROVERA) 150 mg/mL injection Inject 1 mL intramuscularly every 12 weeks. cephALEXin (KEFLEX) 500 mg capsule Take 1 capsule by mouth three times daily. (Patient not taking: Reported on 07/18/2022) loratadine 5 mg chewable tablet Take 5 mg by mouth once daily. (Patient not taking: No sig reported) No current facility-administered medications for this visit. ALLERGIES Allergen Reactions Adhesive Tape (Elissa* Hives, Other: See Comments Bacitracin Hives, Unknown Neomycin Hives, Unknown Polymyxin B Hives, Unknown Seasonal Allergies Cough, Itching No past surgical history on file. Physical Exam: OBJECTIVE: Constitutional: Pt is a well developed 16 year old female who is alert, oriented, cooperative and in no apparent distress. Eyes: Following during examination. No redness or drainage. Respiratory: RR normal and nonlabored. Even breathing. No evidence of distress. Psychology: Patient is engaged during conversation. Normal affect and mood. Does not appear depressed or anxious. NVSI unchanged from previous visit. Dermatological: Medial border of b/l hallux is ingrowing with pain. No signs of infection. ASSESSMENT: (L60.0) Ingrowing toenail (primary encounter diagnosis) PLAN: Discussed ingrowing toenail of b/l hallux No signs of infection Discussed options not limited to periodic slant back vs partial nail matrixectomy of medial border or both borders. Patient and mother agree to medial border matrixectomy of b/l hallux. She does likely have component of raynauds but her pulses are palpable, hair growth is present, she had procedure in past and healed and cft is brisk. Offered pvr prior to procedure. She declined further vascular testing Discussed risks of toenail procedure not limited to infection, pain, swelling, bleeding, painful scarring, recurrence, need for revised procedure. Patient consented to proceed. Patient was properly identified by name and procedure. The right hallux was then injected with 3 cc of 1% lidocaine plain. The toe was then prepped and draped in the usual aseptic technique. A digital tournicot was applied to the toe. The medial border was then freed and removed. Careful inspection was performed to assure no remaining spicule present. 3 applications of phenol were then administered x 30 seconds each followed by alcohol rinse. Sterile dressing was then applied consisting of amerigel, guaze, joshua and coban. Tournicot was removed and hyperemic response was noted. Patient tolerated well. Patient will f/u in 2 weeks. Discussed risks of toenail procedure not limited to infection, pain, swelling, bleeding, painful scarring, recurrence, need for revised procedure. Patient consented to proceed. Patient was properly identified by name and procedure. The left hallux was then injected with 3 cc of 1% lidocaine plain. The toe was then prepped and draped in the usual aseptic technique. A digital tournicot was applied to the toe. The medial border was then freed and removed. Careful inspection was performed to assure no remaining spicule present. 3 applications of phenol were then administered x 30 seconds each followed by alcohol rinse. Sterile dressing was then applied consisting of amerigel, guaze, joshua and coban. Tournicot was removed and hyperemic response was noted. Patient tolerated well. Patient will f/u in 2 weeks. Maxim Villarreal DPM AMB ROOMING INTAKE FLOWSHEET DATA Risk Screening Do you have concerns about personal safety or safety in the home?: No Pain Pain Level: 4 Pain Location: Toe Description: Sharp Duration Amount of Time: 2 Duration Units: Days Frequency: Intermittent Intervention/Comfort measure: Reposition, Relaxation, Distractions Patient presents with: Left Great Toe - Established Patient, Ingrown Toenail Right Great Toe - Established Patient, Ingrown Toenail Patient presents for bilateral great toenail removal. States that Right great toe began hurting over the weekend. Danay Coello RN documented in this encounter [facility] 07-18-2022 Instructions Maxim Villarreal - 07/18/2022 2:31 PM EDT Post-Op Nail Instructions Minimize activity until the anesthesia wears off (about 2-8 hours). Increase activity to tolerance Remove bandage tomorrow Soak affected toe/foot in epsom salts for 15-20 minutes twice daily After soaking, apply antibiotic ointment (OTC Neosporin) to affected toe and re bandage OTC Ibuprofen if having pain, provided you have no allergies or intolerance to NSAIDS Mild drainage, redness, and blood is expected, but if you expeirence severe pain, increase in drainage, swelling, or red streaking please contact our office immediately Feel free to contact office as well if you have any questions/concerns [phone], ask for Podiatry Nurse documented in this encounter [facility] 06-27-2022 Instructions Maxim Villarreal - 06/27/2022 3:20 PM EDT Soak your toe in soap and water daily until healed Take antibiotic as prescribed Apply topical antibiotic for the next few days. Make plans for permanent procedure. documented in this encounter [facility] 06-27-2022 History of Presen t illness Narrative Images from the original note were not included. Initial Podiatric Office Visit: Chief Complaint: This 16 year old female who presents with chief complaint:ingrowing toenail of b/l hallux HPI Patient presents to clinic for evaluation of b/l hallux Patient complains of ingrowing toenail to left hallux medial and lateral nail border and ingrowing toenail to right hallux medial nail border Patient states the painful ingrown has been present for the past 2-3 weeks She does report some drainage to the left great toe Patient is not currently on any antibiotic Patient states that she had a permanent matrixectomy of medial border of b/l hallux last year by [facility]. PAIN EVALUATION 06/27/2022 1504 Pain Level: 7 Baseline 04/24, 06/25 with pressure Pain Location: Toe Description: Throbbing;Sharp Duration Amount of Time: 3 Duration Units: Weeks Frequency: Continuous Intervention/Comfort measure: Reposition;Relaxation;Distracti ons Comments: Soaking in epsom salt No results found for: HBA1C PCP: Jim Nguyen MD History reviewed. No pertinent past medical history. Current Outpatient Medications Medication Sig loratadine 5 mg chewable tablet Take 5 mg by mouth once daily. (Patient not taking: Reported on 06/27/2022) No current facility-administered medications for this visit. ALLERGIES Allergen Reactions Seasonal Allergies Cough, Itching No past surgical history on file. No family history on file. Social History Tobacco Use Smoking status: Never Smokeless tobacco: Never Substance Use Topics Alcohol use: No Drug use: No REVIEW OF SYSTEMS GENERAL: Negative for Malaise, significant weight loss, fever RESPIRATORY: Negative for cough, wheezing and shortness of breath CARDIOVASCULAR: Negative for chest pain, leg swelling and palpitations GI: Negative for abdominal discomfort, blood in stools or black stools and change in bowel habits : Negative for dysuria, frequency and incontinence MUSCULOSKELETAL: Negative for joint pain or swelling, back pain, and muscle pain. SKIN: Negative for lesions, rash, and itching. HEMATOLOGY/LYMPHOLOGY Negative for prolonged bleeding, bruising easily, and swollen nodes. ENDOCRINE: Negative for cold or heat intolerance, polyuria, polydipsia and goiter. NEURO: negative Physical Exam: Constitutional: Pt is a well developed 16 year old female who is alert, oriented and cooperative Eyes: Following during examination. No redness or drainage. Respiratory: RR normal and nonlabored. Even breathing. No evidence of distress or shortness of breath. Psychology: Patient is engaged during conversation. Normal affect and mood. Does not appear depressed or anxious during encounter. Vascular: Dorsalis pedis and posterior tibial pulses palpable as b/l Capillary Fill time < 5 seconds to digits 1-5 b/l Skin temperature warm to warm proximal to distal b/l Hair growth present to digits Neurological: intact light touch/epicritic sensation b/l intact protective sensation no significant neurological deficits Dermatological: Left hallux medial and lateral nail border is ingrowing with redness and swelling. Right hallux medial nail border is ingrowing with redness and swelling. Webspaces clean and dry 1-4 b/l. Skin appears well hydrated and supple. good color, texture, turgor. No open lesions present. No callosities present. Musculoskeletal/Orthopaedic: Patient has pain to palpation of b/l hallux medial border and left hallux lateral nail border Radiographs: n/a ASSESSMENT: (L60.0) Ingrowing toenail with infection (primary encounter diagnosis) Pain in toe PLAN: 1. History and physical examination performed. 2. Discussed ingrowing toenail of b/l hallux. There is redness and swelling present. We discussed treatment options for this patient. Since there is infection, I would hold on any permanent matirxectomy. If she desires permanent procedure, I would place her on antbiotic, get the infection under control and do the procedure once infection is gone. She agrees to proceed with this plan. 3. Today, antibiotic was prescribed 4. Slant back debridement was performed of left hallux medial and lateral nail border 5. Will plan for procedure once infection subsides. Maxim Villarreal DPM Podiatry [address] [facility] [address] Dept: [phone] Dept AMB ROOMING INTAKE FLOWSHEET DATA Risk Screening Do you have concerns about personal safety or safety in the home?: No Pain Pain Level: 7 (Baseline 7/10, 9/10 with pressure) Pain Location: Toe Description: Throbbing, Sharp Duration Amount of Time: 3 Duration Units: Weeks Frequency: Continuous Intervention/Comfort measure: Reposition, Relaxation, Distractions Comments: Soaking in epsom salt Patient presents with: Left Great Toe - New, Pain, Ingrown Toenail Right Great Toe - New, Pain, Ingrown Toenail Patient presents for ingrown greater toe bilaterally. States soaking with epsom salt helps. Also states that last year she had a procedure done with another electric razor mechanic to fix her ingrown toenails. Danay Coello RN documented in this encounter [facility] Evaluation note Diagnosis Ingrowing toenail with infection- Primary Ingrowing nail [facility] Diagnosis Ingrowing toenail- Primary Ingrowing nail [facility] Diagnosis Encounter for insertion of intrauterine contraceptive device (IUD)- Primary [facility] Encounter for IUD insertion- Primary Encounter for insertion of intrauterine contraceptive device [facility] Diagnosis IUD check up- Primary Surveillance of previously prescribed intrauterine contraceptive device [facility] Diagnosis Mood changes- Primary Unspecified episodic mood disorder Reaction, situational, acute, to stress Unspecified acute reaction to stress Partner relational problem Counseling for marital and partner problems, unspecified [facility] Diagnosis Encounter for IUD removal- Primary Encounter for removal of intrauterine contraceptive device Mood changes Unspecified episodic mood disorder General counseling and advice for contraceptive management Other general counseling and advice for contraceptive management * Assessment & Plan Note - Elizabeth Mistry APRN.CNM - 09/26/2024 4:48 PM EST Associated Problem(s): Mood changes [facility] Diagnosis Syncope, unspecified syncope type- Primary Acute nonintractable headache, unspecified headache type [facility] Outpatient Procedure (Routine) - Open Specialty Diagnoses / Procedures Referred By Bhavana jaeger Referred To Contact [facility] Diagnoses Encounter for insertion of intrauterine contraceptive device (IUD) Encounter for removal of intrauterine contraceptive device Procedures INSERT INTRAUTERINE DEVICE LEVONORGESTREL-RELEASING INTR CONTRACEPTIVE (KYLEENA), 19.5 MG INSERT INTRAUTERINE DEVICE REMOVE INTRAUTERINE DEVICE Cathy Keller APRN.CNP [address] [place] [address] [place] [id number] Referral ID Status Reason Start Date Expiration Date V isits Requested Visits Authorized [id number] Open Auto-Generate d Referral 08/09/2022 08/09/2023 1 1 [facility] for referral (narrative)* Outpatient Procedure (Routine) - Pending Review Specialty Diagnoses / Procedures Referred By Bhavana jaeger Referred To Contact [facility] Diagnoses Encounter for IUD insertion Procedures INSERT INTRAUTERINE DEVICE LEVONORGESTREL-RELEASING INTR CONTRACEPTIVE (KYLEENA), 19.5 MG INSERT INTRAUTERINE DEVICE Cathy Keller APRN.CNP [address] [place] [address] [address] Referral ID Status Reason Start Date Expiration Date Visits Requested Visits Authorized [id number] Pending Review Auto-Generat ed Referral 08/16/2022 08/16/2023 1 1 [facility] for referral (narrative)* Outpatient Procedure (Routine) - New Request Specialty Diagnoses / Procedures Referred By Bhavana jaeger Referred To Contact [facility] Diagnoses Encounter for IUD removal Procedures REMOVE INTRAUTERINE DEVICE REMOVE INTRAUTERINE DEVICE Elizabeth Mistry APRN.CNM [address] [place] [address] [facility] [address] [place] [address] Referral ID Status Reason Start Date Expiration Date Visits Requested Visits Authorized [id number] New Request Auto-Generat ed Referral 4 09/26/2025 1 1 [facility] Summary Purpose Family History No Family History Records FoundNo Family History Records FoundNo Family History Records Found Advance Directives No Advanced Directives Records FoundNo Advanced Directives Records FoundNo Advanced Directives Records Found Medications Administered Section Inactive Administered Medications - up to 3 most recent administrations Medication Order MAR Action Action Date Dose Rate Site levonorgestrel 17.5 mcg/24 hrs (5 yrs) 19.5 mg 1 Each intrauterine device (KYLEENA) 1 Each, INTRAUTERINE, ONCE (UP TO 30 DAYS AMB), 1 dose, On Mon08/16/22 at 1200, Hazardous Potential Reproductive Risk Drug: Use appropriate PPE. For Intrauterine Use Only. Given 08/16/2022 12:12 PM EDT 1 Each Other Additional Source Comments INFORMATION SOURCE (unrecogn ized section and content) DATE CREATED AUTHOR 10/26/2021 [facility] DATE CREATED AUTHOR AUTHOR'S ORGANIZ ATION 09/30/2024 [facility] DATE CREATED AUTHOR AUTHOR'S ORGANIZ ATION 02/27/2025 [facility] Source Comments (unrecognize d section and content) In the event this informatio n is protected by the Federal Confidentiality of Alcohol and Drug Abuse Patient Records regulations: The Federal rules restrict any use of the information to criminally investigate or prosecute any alcohol or drug abuse patient.[facility] the event this information is protected by the Federal Confidentiality of Alcohol and Drug Abuse Patient Records regulations: The Federal rules restrict any use of the information to criminally investigate or prosecute any alcohol or drug abuse patient.[facility] the event this information is protected by the Federal Confidentiality of Alcohol and Drug Abuse Patient Records regulations: The Federal rules restrict any use of the information to criminally investigate or prosecute any alcohol or drug abuse patient.[facility] the event this information is protected by the Federal Confidentiality of Alcohol and Drug Abuse Patient Records regulations: The Federal rules restrict any use of the information to criminally investigate or prosecute any alcohol or drug abuse patient.[facility] the event this information is protected by the Federal Confidentiality of Alcohol and Drug Abuse Patient Records regulations: The Federal rules restrict any use of the information to criminally investigate or prosecute any alcohol or drug abuse patient.[facility] the event this information is protected by the Federal Confidentiality of Alcohol and Drug Abuse Patient Records regulations: The Federal rules restrict any use of the information to criminally investigate or prosecute any alcohol or drug abuse patient.[facility] the event this information is protected by the Federal Confidentiality of Alcohol and Drug Abuse Patient Records regulations: The Federal rules restrict any use of the information to criminally investigate or prosecute any alcohol or drug abuse patient.[facility] Reason for Visit (unrecogniz ed section and content) Reason Comments New Pain Ingrown Toenail Specialty Diagnoses / Procedures Referred By Contac t Referred To Contact Podiatry / PODIATRY Diagnoses Ingrowing toenail with infection [place] [facility]- Ingrown Toenails infected Procedures OFFICE/OUTPATIENT NEW MODERATE MDM 45-59 MINUTES [facility] Phil Matthew [address] [place] [address] Referral ID Status Reason Start Date Expiration Date Visits Re quested Visits Authorized [id number] Closed 06/27/2022 10/15/2022 1 1 Reason Comments Established Patient Ingrown Toenail Specialty Diagnoses / Procedures Referred By Contac t Referred To Contact Podiatry / PODIATRY Diagnoses removal nails from both great toes Procedures OFFICE/OUTPATIENT ESTABLISHED MOD MDM 30-39 MIN [facility] EST PODI [address] [place] [place] [address] Maxim Villarreal [address] [place] [address] Referral ID Status Reason Start Date Expiration Date Visits Re quested Visits Authorized [id number] Closed 07/18/2022 10/15/2022 1 1 Reason Comments Contraception Specialty Diagnoses / Procedures Referred By Contac t Referred To Contact Gynecology / PAPER MACHINE OPERATOR Diagnoses Encounter to discuss procedure New [facility] - discuss IUD Procedures OFFICE/OUTPATIENT NEW HIGH MDM 60-74 MINUTES NEW [facility] PATIENT Self Cathy Keller, GOLD MARKER.TECHNOLOGY EDUCATION INSTRUCTOR [address] [place] [address] Referral ID Status Reason Start Date Expiration Date Visits Re quested Visits Authorized [id number] Closed 08/09/2022 10/15/2022 1 1 Reason Onset Date Comments Insertion Of IUD Insertion Of IUD 08/16/2022 Specialty Diagnoses / Procedures Referred By Bhavana t Referred To Contact [facility] Diagnoses Encounter for insertion of intrauterine contraceptive device (IUD) Encounter for removal of intrauterine contraceptive device Procedures INSERT INTRAUTERINE DEVICE LEVONORGESTREL-RELEASING INTR CONTRACEPTIVE (KYLEENA), 19.5 MG INSERT INTRAUTERINE DEVICE REMOVE INTRAUTERINE DEVICE Cathy Keller, TECHNOLOGY EDUCATION INSTRUCTOR [address] [address] [facility] [address] [place] [address] Referral ID Status Reason Start Date Expiration Date Visits Requested Visits Authorized [id number] Authorized Auto-Generat ed Referral 10/15/2022 2 2 Specialty Diagnoses / Procedures Referred By Contlin t Referred To Contact Gynecology / PAPER MACHINE OPERATOR Diagnoses IUD Check Procedures OFFICE/OUTPATIENT ESTABLISHED HIGH MDM 40-54 MIN EST [facility] PATIENT Self Cathy Keller, GOLD MARKER.TECHNOLOGY EDUCATION INSTRUCTOR [address] [place] [address] Referral ID Status Reason Start Date Expiration Date Visits Re quested Visits Authorized [id number] Closed 09/20/2022 10/15/2022 1 1 Reason Comments IUD Reason Comments Discussion Specialty Diagnoses / Procedures Referred By Bhavana t Referred To Contact Television And Radio Repairer / PAPER MACHINE OPERATOR Diagnoses IUD check up discuss iud and hormones Procedures OFFICE/OUTPATIENT EST PT MAY NOT REQ PHYS/QHP OFFICE/OUTPATIENT ESTABLISHED HIGH MDM 40 MIN EST [facility] PATIENT Elizabeth MistryDELROY.CN [address] [place] [address] Elizabeth Mistry APRN.CN [address] [place] [address] Referral ID Status Reason Start Date Expiration Date V isits Requested Visits Authorized [id number] Authorized 09/23/2024 10/15/2024 99 99 Reason Comments Headache Headache since incid ent. Syncope Passed out tonight a fter feeling nausea and dizzy with only one instance of this before in the past. Currently nauseous and headache currently. When she passed out she hit her head without evidence of trauma and no complaints of tenderness. Care Teams (unrecognized sec tion and content) Fitter Machinist Relationship Specialty Start Date End Date Jim Nguyen MD PCP - General Family Practice 06/18/17 Fitter Machinist Relationship Specialty Start Date End Date Jim Nguyen MD PCP - General Family Medicine 06/18/17 Fitter Machinist Relationship Specialty Start Date End Date Jim Nguyen MD PCP - General Family Medicine 06/18/17 Fitter Machinist Relationship Specialty Start Date End Date Jim Nguyen MD PCP - General Family Medicine 06/18/17 Fitter Machinist Relationship Specialty Start Date End Date Jim Nguyen MD PCP - General Family Medicine 06/18/17 Fitter Machinist Relationship Specialty Start Date End Date Jim Nguyen MD PCP - General Family Medicine 06/18/17 Fitter Machinist Relationship Specialty Start Date End Date Jim Nguyen MD PCP - General Family Medicine 06/18/17 Scheduled Active and Recently Administ ered Medications (unrecognized section and content) Medication Order 02/16/2025 02/17/2025 02/18/2025 acetaminophen (Tylenol) tablet 1,000 mg (COMPLETED) 1,000 mg, Oral, Once, On Mon02/18/25 at 0130, For 1 dose, Maximum dose of acetaminophen is 4000 mg from all sources in 24 hours. 0131 (Given - Provid er: Marco Antonio Ventura RN) ondansetron (Zofran) injection 4 mg (COMPLETED) 4 mg, IntraVENous, Once, On Mon02/18/25 at 0235, For 1 dose 0240 (Given - Provid er: Marco Antonio Ventura RN) potassium chloride (Klor-Con) packet 40 mEq (COMPLETED) 40 mEq, Oral, Once, On Mon02/18/25 at 0230, For 1 dose, Dissolve each packet in 4 ounces of water = 5 mEq per 1 oz fluid., Indications: Hypokalemia 0240 (Given - Provid er: Marco Antonio Ventura RN) sodium chloride 0.9 % bolus 1,000 mL (COMPLETED) 1,000 mL, IntraVENous, at 1,000 mL/hr, Administer over 1 Hours, Once, On Mon02/18/25 at 0130, For 1 dose 0148 (New Bag - Prov ider: Marco Antonio Ventura RN)[id number] (Stopped - Provider: Marco Antonio Ventura RN) FOR RECORDS PERTAINING TO PATIENTS WHO ARE OR HAVE BEEN ENROLLED IN A CHEMICAL DEPENDENCY/SUBSTANCEABUSE PROGRAM, SOME INFORMATION MAY BE OMITTED. This clinical summary was aggregated from multiple sources. Caution should be exercised in using it in the provision of clinical care. This summary normalizes information from multiple sources, and as a consequence, information in this document may materially change the coding, format and clinical context of patient data. In addition, data may be omitted in some cases. CLINICAL DECISIONS SHOULD BE BASED ON THE PRIMARY CLINICAL RECORDS. [facility] [employer] [facility]. provides no warranty or guarantee of the accuracy or completeness of information in this document.
== END | disposition home or self-care (01) ==
LOC: MFPLAB 16:16
PROVIDERS: PCP Family Medicine; Visit Provider Nurse Practitioner Family
DX: Z13.1 Encounter for screening for diabetes mellitus (principal)
CPT/HCPCS: 36415; 80053

== ENCOUNTER 2025-08-06 10:55 | Emergency (ER) | payer OTHER, SELFPAY ==
[2025-08-06 10:57] VITALS: BP 115/65; PULSE 60; RESP 18; TEMP 35.8; O2SAT 100; BMI 18.8
[2025-08-06] MEDS: Lidocaine 1% (20 ml mdv) 20 ML Vial INFILT (11:29)
[2025-08-06 11:52] VITALS: BP 114/64; PULSE 62; RESP 12; TEMP 36.6; O2SAT 100
--- NOTE | 2025-08-06 11:53 | EDS_ITS ---
HPI History of Present Illness Chief Complaint: Syncope Detail of Chief Complaint: Syncope and collapse, scalp laceration Informant: patient Onset/Context/Timing Onset: Today and Hours Context: Sudden Onset Timing: Intermittent Quality: Standing for prolonged period of time before she passed out Location: Bedroom Current Severity: Gone Maximum Severity: Severe Worsened by: Standing in 1 position Relieved by: Vasovagal syncope Associated Symptoms Associated Symptoms: Laceration occiput Narrative Narrative: Patient is a 19-year-old. This is a third time she is passed out. She denies double vision, blurred vision loss of vision. Denies trouble speech or swallowing. Denies decreased hearing. She denies neck pain. She denies paresthesia, anesthesia or motor weakness. She denies chest discomfort or shortness of breath prior to this episode. She did feel nauseous warm and was diaphoretic. She does not know whether she was pale. She has no history of GI bleed and denies black or maroon-colored stool. Immunizations up-to-date. Prior similar symptoms: Yes Recent Illness/Hospitalization: No PFSH PFSH Medical History no medical history no medical history Allergy/AdvReac Type Severity Reaction Status Date / Time bacitracin (From Neosporin AdvReac Mild Hives Verified 08/06/25 10:57 ([id number])) neomycin (From Neosporin AdvReac Mild Hives Verified 08/06/25 10:57 ([id number])) polymyxin B (From Neosporin AdvReac Mild Hives Verified 08/06/25 10:57 ([id number])) Family History no significant family his Surgical History no surgical history no surgical history Social History Smoking Status: Current every day smoker tobacco type: e-cigarettes ROS ROS ED Constitutional Constitutional ED: Denies chills, fever(s), subjective, sweats or weight loss Eyes Eyes: Denies blurry vision or change in vision ENT ENT ED: Denies ear pain, rhinorrhea or sore throat Cardiovascular Cardiovascular: Denies chest pain Respiratory/Chest Respiratory/Chest: Denies cough, dyspnea or dyspnea on exertion Gastrointestinal Gastrointestinal: Reports nausea; Denies abdominal pain or vomiting Integumentary Reports other Details: Laceration occiput 3 cm Neurologic Neurologic: Denies headache(s), paresthesias or weakness Psychiatric Psychiatric: Reports anxiety EXAM Physical Exam Const Vital Signs: 08/06/25 10:57 08/06/25 11:03 Temperature 96.5 F L Temperature Source Temporal Pulse Rate 60 Respiratory Rate 18 Respiratory Pattern Normal Blood Pressure 115/65 Blood Pressure Mean 81 Pulse Ox 100 Positive well nourished and well developed General Appearance ED: well developed and NAD HEENT Reports moist mucous membranes HEENT Narrative: Laceration occiput linear. There is no palpable pression. There is no clinical signs of basilar skull fracture Eyes PERRL and EOMs intact bilaterally General Eye ED: Negative for pale conjunctiva or scleral icterus Neck no lymphadenopathy and supple Resp normal respiratory effort Cardio regular rate, regular rhythm, S1 normal heart sound, S2 normal heart sound and no murmurs GI normal to inspection, nondistended, normoactive bowel sounds, non-tender, non- distended and no masses; Negative for hepatosplenomegaly Extremity normal to inspection General Extremety ED: Negative for tenderness Neuro oriented x3 and CN's II-XII intact bilaterally Sensorium / Orientation: alert Psych mental status grossly normal Skin Skin Narrative: Occiput laceration MDM MDM MDM Narrative Medical decision making narrative: History and physical is consistent with vasovagal episode. There is no indication for any testing. Patient has a laceration. Based on the [place] CT head rules imaging is not indicated. Procedures Other Procedures Procedure(s): Laceration repair/occiput. Wound was cleansed and irrigated by nursing staff. The wound was anesthetized with 1% lidocaine by local infiltration. A total of 6 dorinda placed with good cosmesis and hemostasis. All the patient's questions were answered. She was informed if this occurs again she should follow-up with either Dr. Jones or Dr. Myles. Her primary care physician Dr. Silverio or will need to make a referral. Discharge Plan Triage Chief Complaint: Syncope ED Provider: Haim Wilkins Dx/Rx/DC Orders Clinical Impression: Syncope, vasovagal, Laceration of occipital scalp Instructions: ED Laceration Scalp Stitches or [place], ED Fainting, Vagal Reaction Referrals: James Collins MD [Med Staff - Integration Engineer, [facility]] - 10-14 Days suture removal Print Language: Divehi Disposition Disposition: Home, Self Care
[2025-08-06 12:00] VITALS: BP 114/64; PULSE 62; RESP 12; TEMP 36.6; O2SAT 100
[2025-08-06 12:22] VITALS: BP 110/68; PULSE 62; RESP 14; TEMP 36.6; O2SAT 100
== END 2025-08-06 12:23 | disposition home or self-care (01) ==
LOC: ED 12:02
PROVIDERS: Emergency Provider Emergency Medicine; PCP Family Medicine; Visit Provider Emergency Medicine
DX: R55 Syncope and collapse (principal); S01.01XA Laceration without foreign body of scalp, initial encounter; X58.XXXA Exposure to other specified factors, initial encounter; F17.290 Nicotine dependence, other tobacco product, uncomplicated
CPT/HCPCS: 12001; 99282